=== PATIENT | female | born 1985 | race African-American/Black ===

== ENCOUNTER 2017-08-04 19:49 | Observation (INO) | payer SELFPAY ==
[~2017-08-04] VITALS: Ht 170.2 cm; Wt 77.1 kg
[~2017-08-04 19:49] MED LIST: HYDR-4683 PO; IBUP400T21 PO; MULT-228 PO
[2017-08-04 20:15] VITALS: BP 151/89
[2017-08-04] MEDS ORDERED: SODIUM CHLORIDE 0.9% 1,000 ML IVB ONE (20:26)
[2017-08-04 20:37] LABS: Basophils # (auto) 0 uL; Basophils % (auto) 0.3 % (0.0-2.0); Eosinophils # (auto) 0.2 uL; Eosinophils % (auto) 1.4 % (0.0-7.0); Hematocrit 33.3 % (36.0-46.0); Hemoglobin 11.5 g/dL (12.2-16.2); Lymphocytes # (auto) 1.5 uL; Lymphocytes % (auto) 13.4 % (10.0-50.0); Mean Corpuscular Hemoglobin 29.5 pg (28.0-32.0); Mean Corpuscular Hgb Conc. 34.6 g/dL (32.0-36.0); Mean Corpuscular Volume 85.5 fL (80.0-100.0); Mean Platelet Volume 8.6 fL (6.9-10.8); Monocytes % (auto) 8.9 % (0.0-12.0); Neutrophils # (auto) 8.3 uL; Platelet Count (auto) 256 10^3/uL (140-450); Red Cell Distribution Width 13.4 % (11.8-14.3); White Blood Cell 10.9 10^3/uL (4.4-10.8)
[2017-08-04 20:54] LABS: Albumin 3.8 g/dL (3.4-5.0); Anion Gap 8 (5-15); Blood Urea Nitrogen 9 mg/dL (7-18); Calcium 8.7 mg/dL (8.5-10.1); Carbon Dioxide 24 mmol/L (21-32); Chloride 108 mmol/L (98-107); Glucose 79 mg/dL (74-106); Magnesium 1.9 mg/dL (1.6-2.6); Potassium 3.3 mmol/L (3.5-5.1); Sodium 140 mmol/L (136-145)
[2017-08-04 20:56] LABS: Aspartate Aminotransferase 13 U/L (15-37); BUN/Creatinine Ratio 11.8; GFR African American 115 mL/min; GFR Non-African American 95 mL/min
[2017-08-04 20:57] LABS: Amylase 52 U/L (25-115)
[2017-08-04 21:00] LABS: Alkaline Phosphatase 83 U/L (45-117); Bilirubin, Total 0.6 mg/dL (0.2-1.0); Total Protein 8.5 g/dL (6.4-8.2)
[2017-08-04 21:06] LABS: INR 1.04 (0.9-1.15); Partial Thromboplastin Time 26.1 sec (22.64-33.71); Prothrombin Time 11.3 sec (9.37-12.3)
== END 2017-08-04 21:11 | disposition left against medical advice (07) | DRG 379 ==
LOC: EDBD 19:49 → ER 19:52 → OVERFLOW 20:28 → ER 21:11
PROVIDERS: ADMIT Family Medicine; ATTEND Family Medicine
DX: K92.1 Melena (principal); Z82.49 Family history of ischemic heart disease and other diseases of the circulatory system
CPT/HCPCS: 36415; 80053; 82150; 83690; 83735; 84484; 85025; 85610; 85730; 99285; G0378

== ENCOUNTER 2023-06-20 03:46 | Inpatient (IN) | payer MEDICAID ==
[~2023-06-20] VITALS: Ht 172.7 cm; Wt 84.5 kg
[~2023-06-20 03:46] MED LIST changes: -HYDR-4683 PO; +HYDR-4833 PO; +IBUP-1453 PO; -IBUP400T21 PO
[2023-06-20 04:41] LABS: Basophils # (auto) 0 10 ^3/uL (0-0.2); Eosinophils # (auto) 0.2 10 ^3/uL (0-0.8)
[2023-06-20 04:45] LABS: Basophils % (auto) 0.2 % (0.0-2.0); Eosinophils % (auto) 1.5 % (0.0-7.0); Hematocrit 28.3 % (36.0-46.0); Hemoglobin 9.3 g/dL (12.2-16.2); Lymphocytes # (auto) 2.3 10 ^3/uL (0.4-5.4); Lymphocytes % (auto) 20.8 % (10.0-50.0); Mean Corpuscular Hgb Conc. 32.7 g/dL (32.0-36.0); Mean Corpuscular Volume 76.5 fL (80.0-100.0); Monocytes # (auto) 2.1 10 ^3/uL (0-1.3); Neutrophils # (auto) 6.7 10 ^3/uL (1.6-8.6); Neutrophils % (auto) 59.2 % (37.0-80.0); Red Cell Distribution Width 15.9 % (11.8-14.3); White Blood Cell 11.3 10^3/uL (4.4-10.8)
[2023-06-20 04:49] LABS: Monocytes % (auto) 18.3 % (0.0-12.0)
[2023-06-20 04:53] LABS: Alanine Aminotransferase 27 U/L (7-40); Albumin 3.9 g/dL (3.2-4.8); Alkaline Phosphatase 265 U/L (46-116); Anion Gap 9.7 (5-15); Aspartate Aminotransferase 34 U/L (13-40); BUN/Creatinine Ratio 43.1 (10.0-20.0); Blood Urea Nitrogen 22 mg/dL (9-23); Calcium 10.9 mg/dL (8.7-10.4); Carbon Dioxide 26.3 mmol/L (20-30); Chloride 102 mmol/L (98-107); Glucose 108 mg/dL (74-106); Lipase 57 U/L (12-53); Magnesium 1.4 mg/dL (1.6-2.6); Potassium 3.9 mmol/L (3.5-5.1); Sodium 138 mmol/L (136-145)
[2023-06-20 04:54] LABS: Bilirubin, Total 0.5 mg/dL (0.2-1.0); Total Protein 7.7 g/dL (5.7-8.2)
[2023-06-20 04:56] LABS: INR 1.19 (0.9-1.15); Prothrombin Time 12.4 sec (9.3-11.8)
[2023-06-20] MEDS ORDERED: ONDANSETRON HCL 4 MG/2 ML VIAL IV ONE (07:00)
[2023-06-20] MEDS ORDERED: SODIUM CHLORIDE 0.9% 1,000 ML IV ONE ×2 (07:00)
[2023-06-20] MEDS ORDERED: IOHEXOL 300 MG/ML 100ML BOTTLE IJ ONE (07:46)
[2023-06-20] MEDS ORDERED: MORPHINE SULFATE 4 MG/ML SYR/VIAL ONE (07:57)
[2023-06-20] MEDS ORDERED: MORPHINE SULFATE 4 MG/ML SYR/VIAL IV ONE (08:00)
[2023-06-20] MEDS ORDERED: NITROGLYCERIN 0.4 MG SL TAB SL PRN (10:30)
[2023-06-20] MEDS ORDERED: PANTOPRAZOLE 40 MG/10 ML VIAL INJ IV ONE (10:30)
[2023-06-20] MEDS ORDERED: HYDROcodone-ACET 5/325MG TAB PO PRN (10:30)
[2023-06-20] MEDS ORDERED: MORPHINE SULFATE INJ 2 MG/ml SYRG IV PRN (10:30)
[2023-06-20] MEDS ORDERED: methylPREDNISolone SOD SUCC 40 MG/ML VL IV ONE (10:30)
[2023-06-20] MEDS ORDERED: MESALAMINE 400mg Delayed Release Cap PO ONE (10:30)
[2023-06-20] MEDS ORDERED: PIPERACILLIN-TAZOB 3.375GM 100 ML IV ONE (10:30)
[2023-06-20] MEDS ORDERED: ACETAMINOPHEN 325 MG TAB PO PRN (10:30)
[2023-06-20] MEDS: SODIUM CHLORIDE 0.9% 1,000 ML IV SCH ×2 (11:22→22:41)
[2023-06-20] MEDS: MAGNESIUM SULFATE 1GM/100ML 100 ML IV SCH ×3 (11:22→18:10)
[2023-06-20] MEDS: MORPHINE SULFATE INJ 2 MG/ml SYRG IV PRN ×3 (11:22→21:42)
[2023-06-20 11:52] LABS: Erythrocyte Sedimentation Rate 70 mm/hr (0-20)
[2023-06-20 13:03] LABS: Platelet Estimate Increased
[2023-06-20 14:41] VITALS: PULSE 110; RESP 22; O2SAT 96
[2023-06-20 15:28] LABS: Urine Bacteria NONE SEEN /hpf (None Seen); Urine Blood 3+ /uL (Negative); Urine Clarity HAZY (Clear); Urine Color Yellow (Yellow); Urine Protein, UAD 1+ (Negative); Urine Specific Gravity 1.033 (1.001-1.035); Urine Urobilinogen Normal (Negative); Urine WBC 217 /hpf (0 - 5); Urine WBC Clumps PRESENT /hpf (None Seen); Urine pH 5.5 (5.0-8.0)
[2023-06-20 15:45] VITALS: PULSE 105; RESP 22; O2SAT 96
[2023-06-20 17:23] LABS: Basophils # (auto) 0 10 ^3/uL (0-0.2); Eosinophils # (auto) 0 10 ^3/uL (0-0.8); Lymphocytes # (auto) 0.6 10 ^3/uL (0.4-5.4); Mean Corpuscular Hgb Conc. 32.8 g/dL (32.0-36.0); Monocytes # (auto) 0.2 10 ^3/uL (0-1.3); Red Cell Distribution Width 16.1 % (11.8-14.3); White Blood Cell 10.6 10^3/uL (4.4-10.8)
[2023-06-20 17:24] LABS: Basophils % (auto) 0.2 % (0.0-2.0); Hematocrit 25.8 % (36.0-46.0); Hemoglobin 8.5 g/dL (12.2-16.2); Lymphocytes % (auto) 5.8 % (10.0-50.0); Mean Corpuscular Hemoglobin 25.3 pg (28.0-32.0); Mean Corpuscular Volume 77.3 fL (80.0-100.0); Monocytes % (auto) 2.3 % (0.0-12.0); Neutrophils # (auto) 9.7 10 ^3/uL (1.6-8.6); Neutrophils % (auto) 91.7 % (37.0-80.0); Red Blood Cells 3.33 10^6/uL (4.0-5.20)
[2023-06-20 17:51] LABS: Alanine Aminotransferase 30 U/L (7-40); Albumin 3.8 g/dL (3.2-4.8); Alkaline Phosphatase 271 U/L (46-116); Anion Gap 8.3 (5-15); Aspartate Aminotransferase 52 U/L (13-40); BUN/Creatinine Ratio 30.9 (10.0-20.0); Blood Urea Nitrogen 17 mg/dL (9-23); Calcium 10.6 mg/dL (8.5-10.1); Carbon Dioxide 23.7 mmol/L (20-30); Chloride 104 mmol/L (98-107); Glucose 151 mg/dL (74-106); Potassium 4.3 mmol/L (3.5-5.1); Sodium 136 mmol/L (136-145)
[2023-06-20 17:52] LABS: Bilirubin, Total 0.4 mg/dL (0.2-1.0); Total Protein 7.3 g/dL (5.7-8.2)
[2023-06-20] MEDS ORDERED: MAGNESIUM SULFATE 1GM/100ML 100 ML IV ONE (18:04)
[2023-06-20] MEDS: PIPERACILLIN-TAZOB 3.375GM 100 ML IV SCH ×2 (18:10→23:54)
[2023-06-20 20:41] VITALS: PULSE 91; RESP 27; O2SAT 95
[2023-06-20 22:00] VITALS: BP 150/84; PULSE 89; RESP 16; TEMP 98.5; O2SAT 94
[2023-06-20 22:30] VITALS: PULSE 92
[2023-06-20 22:35] VITALS: PULSE 91; RESP 22; O2SAT 95
[2023-06-20] MEDS ORDERED: MORP1TAB12 PO (22:38)
[2023-06-20] MEDS: methylPREDNISolone SOD SUCC 40 MG/ML VL IV SCH (22:41)
[2023-06-20] MEDS: MESALAMINE 400mg Delayed Release Cap PO SCH (22:41)
[2023-06-21] MEDS: MORPHINE SULFATE INJ 2 MG/ml SYRG IV PRN ×5 (02:43→22:26)
[2023-06-21] MEDS: SODIUM CHLORIDE 0.9% 1,000 ML IV SCH ×3 (03:10→19:50)
[2023-06-21 04:59] VITALS: BP 134/91; PULSE 86; RESP 17; TEMP 98.3; O2SAT 99
[2023-06-21] MEDS ORDERED: hydrALAZINE HCL 20 MG/ML VL IV PRN (05:00)
[2023-06-21] MEDS: PIPERACILLIN-TAZOB 3.375GM 100 ML IV SCH ×3 (06:15→17:59)
[2023-06-21] MEDS: MESALAMINE 400mg Delayed Release Cap PO SCH ×3 (06:15→22:16)
[2023-06-21 08:00] VITALS: BP 151/95; PULSE 81; PULSE 89; RESP 99; TEMP 98.7; O2SAT 96; O2SAT 99
[2023-06-21] MEDS: PANTOPRAZOLE 40 MG/10 ML VIAL INJ IV SCH (08:49)
[2023-06-21] MEDS: methylPREDNISolone SOD SUCC 40 MG/ML VL IV SCH ×2 (08:49→22:21)
[2023-06-21] MEDS: MULTIPLE VITAMIN TAB PO SCH (09:00)
[2023-06-21] MEDS: ONDANSETRON HCL 4 MG/2 ML VIAL IV PRN ×3 (11:10→22:23)
[2023-06-21 12:00] VITALS: BP 160/92; PULSE 82; TEMP 98.6; O2SAT 98
[2023-06-21 14:00] VITALS: BP 156/95; PULSE 92; RESP 19; TEMP 98.3; O2SAT 98
[2023-06-21 16:13] LABS: Basophils # (auto) 0 10 ^3/uL (0-0.2); Basophils % (auto) 0.1 % (0.0-2.0); Eosinophils # (auto) 0 10 ^3/uL (0-0.8); Hematocrit 25.1 % (36.0-46.0); Lymphocytes # (auto) 0.8 10 ^3/uL (0.4-5.4); Mean Corpuscular Hemoglobin 24.8 pg (28.0-32.0); Mean Corpuscular Hgb Conc. 31.8 g/dL (32.0-36.0); Mean Corpuscular Volume 78.1 fL (80.0-100.0); Monocytes % (auto) 7.9 % (0.0-12.0); Red Blood Cells 3.22 10^6/uL (4.0-5.20); Red Cell Distribution Width 15.7 % (11.8-14.3); White Blood Cell 12.8 10^3/uL (4.4-10.8)
[2023-06-21 16:30] LABS: Alanine Aminotransferase 33 U/L (7-40); Alkaline Phosphatase 235 U/L (46-116); Anion Gap 7.8 (5-15); Aspartate Aminotransferase 40 U/L (13-40); BUN/Creatinine Ratio 26.5 (10.0-20.0); Blood Urea Nitrogen 13 mg/dL (9-23); Calcium 9.7 mg/dL (8.5-10.1); Carbon Dioxide 24.2 mmol/L (20-30); Chloride 105 mmol/L (98-107); Glucose 157 mg/dL (74-106); Magnesium 1.5 mg/dL (1.6-2.6); Sodium 137 mmol/L (136-145)
[2023-06-21 16:31] LABS: Albumin 3.8 g/dL (3.2-4.8); Bilirubin, Total 0.4 mg/dL (0.2-1.0); Total Protein 7.3 g/dL (5.7-8.2)
[2023-06-21 20:00] VITALS: PULSE 89; RESP 99; TEMP 36.8; O2SAT 99
[2023-06-21 22:00] VITALS: BP 154/90; PULSE 94; RESP 19; TEMP 98.1; O2SAT 97
[2023-06-22] VITALS (8 sets, daily range): BP systolic 135–168; BP diastolic 79–96; PULSE 80–109; RESP 18–99; TEMP 97.6–98.3; O2SAT 92–99
[2023-06-22] MEDS: SODIUM CHLORIDE 0.9% 1,000 ML IV SCH ×3 (04:10→20:50)
[2023-06-22] MEDS: PIPERACILLIN-TAZOB 3.375GM 100 ML IV SCH ×4 (04:10→18:00)
[2023-06-22] MEDS: MORPHINE SULFATE INJ 2 MG/ml SYRG IV PRN ×5 (04:43→22:52)
[2023-06-22] MEDS: MESALAMINE 400mg Delayed Release Cap PO SCH ×3 (06:18→21:13)
[2023-06-22] MEDS: PANTOPRAZOLE 40 MG/10 ML VIAL INJ IV SCH (10:12)
[2023-06-22] MEDS: ONDANSETRON HCL 4 MG/2 ML VIAL IV PRN ×4 (10:12→22:47)
[2023-06-22] MEDS: methylPREDNISolone SOD SUCC 40 MG/ML VL IV SCH ×2 (10:14→21:13)
[2023-06-22] MEDS: MULTIPLE VITAMIN TAB PO SCH (10:14)
[2023-06-22] MEDS: methIMAzole 5 MG TAB PO SCH ×2 (14:11→21:13)
[2023-06-23] VITALS (7 sets, daily range): BP systolic 137–149; BP diastolic 76–94; PULSE 63–74; RESP 16–20; TEMP 97.6–98.6; O2SAT 94–100
[2023-06-23] MEDS: PIPERACILLIN-TAZOB 3.375GM 100 ML IV SCH ×2 (00:06→05:32)
[2023-06-23] MEDS: ONDANSETRON HCL 4 MG/2 ML VIAL IV PRN ×6 (02:36→23:03)
[2023-06-23] MEDS: MORPHINE SULFATE INJ 2 MG/ml SYRG IV PRN ×6 (02:39→23:04)
[2023-06-23] MEDS: SODIUM CHLORIDE 0.9% 1,000 ML IV SCH (05:19)
[2023-06-23] MEDS: MESALAMINE 400mg Delayed Release Cap PO SCH ×3 (05:32→21:22)
[2023-06-23] MEDS: methIMAzole 5 MG TAB PO SCH ×3 (05:32→21:23)
[2023-06-23] MEDS: MULTIPLE VITAMIN TAB PO SCH (09:49)
[2023-06-23] MEDS: methylPREDNISolone SOD SUCC 40 MG/ML VL IV SCH ×2 (09:50→21:21)
[2023-06-23] MEDS: PANTOPRAZOLE 40 MG/10 ML VIAL INJ IV SCH (09:50)
[2023-06-23] MEDS ORDERED: CIPROFLOXACIN HYDROCHLORIDE 250 MG TAB PO ONE (12:00)
[2023-06-23] MEDS ORDERED: LOPERAMIDE HCL 2 MG CAP/TAB PO PRN (12:00)
[2023-06-23] MEDS: CIPROFLOXACIN HYDROCHLORIDE 250 MG TAB PO SCH (21:23)
[2023-06-24] MEDS: ONDANSETRON HCL 4 MG/2 ML VIAL IV PRN ×4 (03:22→15:15)
[2023-06-24] MEDS: MORPHINE SULFATE INJ 2 MG/ml SYRG IV PRN ×4 (03:26→15:24)
[2023-06-24 05:00] VITALS: BP 122/68; PULSE 70; RESP 17; TEMP 97.8; O2SAT 99
[2023-06-24 06:14] LABS: Basophils # (auto) 0 10 ^3/uL (0-0.2); Eosinophils # (auto) 0 10 ^3/uL (0-0.8); Hemoglobin 9.6 g/dL (12.2-16.2); Lymphocytes # (auto) 1.2 10 ^3/uL (0.4-5.4); Monocytes # (auto) 0.9 10 ^3/uL (0-1.3); Neutrophils # (auto) 12.2 10 ^3/uL (1.6-8.6); Nucleated Red Blood Cells % 0.1 %; White Blood Cell 14.3 10^3/uL (4.4-10.8)
[2023-06-24 06:15] LABS: Basophils % (auto) 0.2 % (0.0-2.0); Hematocrit 28.9 % (36.0-46.0); Lymphocytes % (auto) 8.4 % (10.0-50.0); Mean Corpuscular Hemoglobin 25.8 pg (28.0-32.0); Mean Corpuscular Hgb Conc. 33.1 g/dL (32.0-36.0); Mean Corpuscular Volume 77.9 fL (80.0-100.0); Neutrophils % (auto) 85.4 % (37.0-80.0); Red Blood Cells 3.71 10^6/uL (4.0-5.20); Red Cell Distribution Width 15.9 % (11.8-14.3)
[2023-06-24 06:25] LABS: Alanine Aminotransferase 68 U/L (7-40); Albumin 3.9 g/dL (3.2-4.8); Alkaline Phosphatase 196 U/L (46-116); Aspartate Aminotransferase 38 U/L (13-40); BUN/Creatinine Ratio 24.6 (10.0-20.0); Bilirubin, Total 0.4 mg/dL (0.2-1.0); Blood Urea Nitrogen 14 mg/dL (9-23); Calcium 9.3 mg/dL (8.5-10.1); Chloride 105 mmol/L (98-107); Glucose 178 mg/dL (74-106); Magnesium 1.5 mg/dL (1.6-2.6); Sodium 136 mmol/L (136-145); Total Protein 7.2 g/dL (5.7-8.2)
[2023-06-24 06:55] LABS: Anion Gap 8.6 (5-15); Carbon Dioxide 22.4 mmol/L (20-30)
[2023-06-24] MEDS: methIMAzole 5 MG TAB PO SCH ×2 (06:57→14:48)
[2023-06-24] MEDS: MESALAMINE 400mg Delayed Release Cap PO SCH ×2 (07:03→14:47)
[2023-06-24 08:00] VITALS: PULSE 67
[2023-06-24 08:30] VITALS: BP 153/71; PULSE 65; RESP 17; TEMP 97.7; O2SAT 95
[2023-06-24] MEDS ORDERED: METH-552 PO (09:42)
[2023-06-24] MEDS ORDERED: ZOFR4T PO (09:42)
[2023-06-24] MEDS ORDERED: METH4PAK PO (09:42)
[2023-06-24] MEDS ORDERED: LOP2C PO (09:42)
[2023-06-24] MEDS ORDERED: METR-344 PO (09:44)
[2023-06-24] MEDS ORDERED: CIPR-273 PO (09:44)
[2023-06-24] MEDS: MAGNESIUM SULFATE 1GM/100ML 100 ML IV SCH ×2 (10:44→12:50)
[2023-06-24] MEDS: MULTIPLE VITAMIN TAB PO SCH (10:44)
[2023-06-24] MEDS: CIPROFLOXACIN HYDROCHLORIDE 250 MG TAB PO SCH (10:44)
[2023-06-24] MEDS: methylPREDNISolone SOD SUCC 40 MG/ML VL IV SCH (10:44)
[2023-06-24] MEDS: PANTOPRAZOLE 40 MG/10 ML VIAL INJ IV SCH (10:44)
[2023-06-24 12:30] VITALS: BP 145/88; PULSE 74; RESP 19; TEMP 97.7; O2SAT 98
[2023-06-24 15:54] VITALS: BP 123/67; PULSE 93; RESP 20
== END 2023-06-24 18:50 | disposition home or self-care (01) | DRG 463 ==
LOC: EDBD 03:46 → ER 03:46 → TELE 10:29 → TELE-WESTW 22:15
PROVIDERS: ADMIT Nurse Practitioner Family; ATTEND Internal Medicine Geriatric Medicine
DX: N39.0 Urinary tract infection, site not specified (principal); D25.9 Leiomyoma of uterus, unspecified; K50.90 Crohn's disease, unspecified, without complications; D64.9 Anemia, unspecified; R00.0 Tachycardia, unspecified; E83.42 Hypomagnesemia; R74.8 Abnormal levels of other serum enzymes; E05.90 Thyrotoxicosis, unspecified without thyrotoxic crisis or storm; Z80.0 Family history of malignant neoplasm of digestive organs; Z82.49 Family history of ischemic heart disease and other diseases of the circulatory system; Z83.3 Family history of diabetes mellitus
CPT/HCPCS: 36415; 74177; 80053; 81001; 82270; 83690; 83735; 84439; 84443; 84702; 85025; 85610; 85652; 85730; 86141; 87040; 87045; 87086; 87177; 87427; 87493; C9113; G0378; J2405; J2543

== ENCOUNTER 2025-09-16 06:06 | Inpatient (IN) | payer MEDICAID ==
[~2025-09-16] VITALS: Ht 182.9 cm; Wt 89.0 kg
[~2025-09-16 06:06] MED LIST changes: +CIPR-273 PO; -HYDR-4833 PO; -IBUP-1453 PO; +LOPE2CAP16 PO; +METH-552 PO; +METH4PAK PO; +METR-344 PO; +MORP1TAB12 PO; +PRED20TA2 PO; +ZOFR4T PO
--- NOTE | 2025-09-16 07:15 | ED.PDOC ---
GI ASSESSMENT HPI Comments A 40 YEAR OLD FEMALE PRESENTS TO THE ED WITH COMPLAINT OF FATIGUE AND RECTAL PAIN. PATIENT STATES SHE HAS BEEN EXPERIENCING GENERALIZED WEAKNESS/FATIGUE, NAUSEA, VOMITING, DIARRHEA, AND RECTAL PAIN OFF AND ON FOR THE PAST 3 WEEKS. PATIENT NOTES HE HAS A HISTORY OF CROHN'S DISEASE, AND HAS HAD THIS ISSUE MULTIPLE TIMES IN THE PAST. PATIENT DENIES FEVER, SHORTNESS OF BREATH, CHEST PAIN, ABDOMINAL PAIN, HEADACHE, OR OTHER COMPLAINTS. NO OTHER SYMPTOMS OR MODIFYING FACTORS AT THIS TIME. PATIENT IS ALERT, ORIENTED X 4, AND HAS STEADY GAIT. Chief Complaint: Rectal Pain Time Seen by MD: 06:27 Primary Care Provider: NONE Reviewed Notes: Nurses Notes, Medications, Allergies Allergies: Coded Allergies: NO KNOWN ALLERGIES (Unverified , 05/04/15) Home Meds Active Scripts Prednisone (Prednisone) 20 Mg Tab, 60 MG PO DAILY for 5 Days, #15 MG Prov:YUMIKO YOU DO 01/09/24 Metronidazole (Flagyl) 500 Mg Tab, 1 TAB PO TID, #21 TAB Prov:TRACI BENDER MD 06/24/23 Ciprofloxacin Hcl (Cipro) 250 Mg Tab, 250 MG PO BID for 7 Days, #14 TAB Prov:TRACI BENDER MD 06/24/23 Methylprednisolone (Medrol Dosepak) 4 Mg Kostas, 4 MG PO UD, #21 TAB UAD Prov:TRACI BENDER MD 06/24/23 Ondansetron Odt 4MG Tab (ZOFRAN PO) 4 Mg Tb, 4 MG PO Q6HP PRN, #30 TAB ODT TAB-DISSOLVE IN MOUTH, THEN SWALLOW Prov:TRACI BENDER MD 06/24/23 Methimazole (Methimazole) 10 Mg Tab, 10 MG PO TID for 30 Days, #90 TAB 5 Refills Prov:TRACI BENDER MD 06/24/23 Loperamide Hcl (Imodium) 2 Mg Cp, 2 MG PO Q6HP PRN, #30 CAP Prov:TRACI BENDER MD 06/24/23 Reported Medications Morphine Sulfate (Morphine Sulfate Cr) 15 Mg Tab, 1 TAB PO DAILY 06/20/23 Multiple Vitamin (Multi-Day Vitamins) Vitamins Tab, 1 TAB PO DAILY, #30 TAB 05/05/15 Information Source: Patient Mode of Arrival: Ambulatory Timing: Weeks Duration: Since onset, Days Prehospital treatment: None Quality: Aching, Colicky Vomitus: Food Particles Stool: Loose, Watery Severity: Moderate Recent: None Recent Hx of: None Pain Location: Other (RECTUM) Modifying Factors: Nothing Associated sign and symptoms: Nausea, Vomiting, Diarrhea Past Medical History PAST MEDICAL HISTORY: Anemia, Thyroid Past Medical History (Other): CROHN'S DISEASE Surgical History: Denies all surgeries COLLISION REPAIR TECHNICIAN History: No Pertinent COLLISION REPAIR TECHNICIAN History Family History Family History: Reviewed,noncontributory to illness, No family hx of HTN Social History Smoker: Non-Smoker Alcohol: Denies ETOH Use Drugs: Denies Drug Use Lives In: Home Constitutional: reports: fatigue; denies: chills, diaphoresis, fever, malaise, sweats, weakness, others EENTM: denies: blurred vision, double vision, ear bleeding, ear discharge, ear drainage, ear pain, ear ringing, eye pain, eye redness, hearing loss, mouth pain, mouth swelling, nasal discharge, nose bleeding, nose congestion, nose pain, photophobia, tearing, throat pain, throat swelling, voice changes, others Respiratory: denies: cough, hemoptysis, orthopnea, SOB at rest, shortness of breath, SOB with excertion, stridor, wheezing, others Cardiovascular: denies: chest pain, dizzy spells, diaphoresis, Dyspnea on exertion, edema, irregular heart beat, left arm pain, lightheadedness, palpitations, PND, syncope, others Gastrointestinal: reports: diarrhea, nausea, rectal pain, vomiting; denies: abdomen distended, abdominal pain, blood streaked bowels, constipated, dysphagia, difficulty swallowing, hematemesis, melena, poor appetite, poor fluid intake, rectal bleeding, others Genitourinary: denies: abnormal vagina bleeding, burning, dyspareunia, dysuria, flank pain, frequency, hematuria, incontinence, pain, , vagina discharge, urgency, others Neurological: denies: dizziness, fainting, headache, left sided numbness, left sided weakness, numbness, paresthesia, pre-existing deficit, right sided numbness, right sided weakness, seizure, speech problems, tingling, tremors, weakness, others Musculoskeletal: denies: back pain, gout, joint pain, joint swelling, muscle pain, muscle stiffness, neck pain, others Integumetry: reports: lesions, lumps, wounds; denies: bruises, change in color, change in hair/nails, dryness, laceration, rash, others Allergic/Immunocompromised: denies: Difficulty Healing, Frequent Infections, Hives, Itching, others Hematologic/Lymphatic: denies: anemia, blood clots, easy bleeding, easy bruising, swollen glands, others Endocrine: denies: excessive hunger, excessive sweating, excessive thirst, excessive urination, flushing, intolerance to cold, intolerance to heat, unexplained weight gain, unexplained weight loss, others Psychiatric: denies: anxiety, bipolar disorder, depression, hopeless, panic disorder, schizophrenia, sleepless, suicidal, others All Other Systems: Reviewed and Negative Physical Exam General Appearance: No Apparent Distress, Normal HEENT: Normal ENT Inspection, PERRL/EOMI, Pharynx Normal, TMs Normal Neck: Full Range of Motion, Non-Tender, Normal, Normal Inspection Respiratory: Chest Non-Tender, Lungs Clear, No Accessory Muscle Use, No Respiratory Distress, Normal Breath Sounds Cardiovascular: No Edema, No JVD, No Murmur, No Gallop, Normal Peripheral Pulses, Regular Rate/Rhythm Breast Exam: Deferred Gastrointestinal: No Organomegaly, Non Tender, No Pulsatile Mass, Normal Bowel Sounds, Soft Genitalia: Deferred Pelvic: Deferred Rectal: Heme negative stool, Normal rectal tone, Tenderness (TENDERNESS AND RE DNESS AROUND RECTAL REGION WITH OLD FISTULA NOTED. 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 ) Peripheral Pulses: 2+ carotid (R), 2+ carotid (L) Lymphatic: No Adenopathy Was a procedure done? Was a procedure done?: No GI differential Dx Differential Diagnosis: Diverticular disease, Gastritis/PUD, Gastroenteritis, UTI, Dehydration, Electrolyte Imbalance, Food Poisoning, Viral Other Differential Diagnosis PERIRECTAL CELLULITIS, ABSCESS X-Ray, Labs, Meds, VS Vital Signs Date Time Temp Pulse Resp B/P (MAP) Pulse Ox O2 Delivery O2 Flow Rate FiO2 09/16/25 08:06 98.8 105 18 121/60 (80) 98 98.8 09/16/25 08:06 105 18 98 Room Air 09/16/25 06:08 98.8 105 18 121/60 98 98.8 Lab Test 09/16/25 07:30 09/16/25 06:42 Range/Units White Blood Count 8.0 4.4-10.8 10^3/uL Red Blood Count 3.36 L 4.0-5.20 10^6/uL Hemoglobin 8.8 L 12.2-16.2 g/dL Hematocrit 25.8 L 36.0-46.0 % Mean Corpuscular Volume 76.6 L 80.0-100.0 fL Mean Corpuscular Hemoglobin 26.2 L 28.0-32.0 pg Mean Corpuscular Hemoglobin Concent 34.2 32.0-36.0 g/dL Red Cell Distribution Width 15.1 H 11.8-14.3 % Platelet Count 261 140-450 10^3/uL Mean Platelet Volume 8.5 6.9-10.8 fL Neutrophils (%) (Auto) 52.4 37.0-80.0 % Lymphocytes (%) (Auto) 30.3 10.0-50.0 % Monocytes (%) (Auto) 16.5 H 0.0-12.0 % Eosinophils (%) (Auto) 0.4 0.0-7.0 % Basophils (%) (Auto) 0.4 0.0-2.0 % Neutrophils # (Auto) 4.2 1.6-8.6 10 ^3/uL Lymphocytes # (Auto) 2.4 0.4-5.4 10 ^3/uL Monocytes # (Auto) 1.3 0-1.3 10 ^3/uL Eosinophils # (Auto) 0 0-0.8 10 ^3/uL Basophils # (Auto) 0 0-0.2 10 ^3/uL Nucleated Red Blood Cells 0.1 % Sodium Level 139 136-145 mmol/L Potassium Level 3.5 3.5-5.1 mmol/L Chloride Level 107 98-107 mmol/L Carbon Dioxide Level 20 20-31 mmol/L Anion Gap 12 5-15 Blood Urea Nitrogen 19 9-23 mg/dL Creatinine 0.63 0.550-1.02 mg/dL Glomerular Filtration Rate Calc 116 >90 mL/min BUN/Creatinine Ratio 30.2 H 10.0-20.0 Serum Glucose 105 74-106 mg/dL Lactic Acid Level 1.3 0.4-2.0 mmol/L Calcium Level 9.0 8.7-10.4 mg/dL Iron Level Pending Total Iron Binding Capacity Pending Percent Iron Saturation Pending Ferritin Pending Total Bilirubin 0.6 0.2-1.0 mg/dL Aspartate Amino Transferase (AST) 55 H 13-40 U/L Alanine Aminotransferase (ALT) 35 7-40 U/L Alkaline Phosphatase 202 H 46-116 U/L Total Protein 7.3 5.7-8.2 g/dL Albumin 3.7 3.2-4.8 g/dL Thyroid Stimulating Hormone (TSH) < 0.01 L 0.55-4.78 uIU/mL Free Thyroxine (T4) Calculated 5.29 H 0.89-1.76 ng/dL Free Triiodothyronine (T3) pg/mL 15.81 H 2.3-4.2 pg/mL Urine Color Yellow Yellow Urine Clarity Clear Clear Urine pH 6.0 5.0-9.0 Urine Specific [place] > 1.050 H 1.001-1.035 Urine Protein 1+ H Negative Urine Ketones 1+ H Negative Urine Blood 2+ H Negative /uL Urine Nitrite Negative Negative Urine Bilirubin Negative Negative Urine Urobilinogen Normal Negative mg/dL Urine Leukocyte Esterase 3+ Negative /uL Urine RBC 50 0 - 4 /hpf Urine Microscopic WBC 13 H 0-5 /HPF Urine Squamous Epithelial Cells Mod <5 /hpf Urine Bacteria Few H None Seen /hpf Urine Mucus Few None Seen Urine Glucose Normal Normal mg/dL Current Medications Medications (Trade) Dose Ordered Sig/Marybeth Route Start Time Stop Time Status Last Admin Sodium Chloride 1,000 ml @ 1,000 mls/hr Q1H ONCE IV 09/16/25 09:15 09/16/25 10:14 DC 09/16/25 09:18 X-Ray, Labs, Meds, VS Comment EXTERNAL MEDICAL RECORDS REVIEWED: [NONE] INDEPENDENT HISTORIANS: [NONE] SOCIAL DETERMINANTS OF HEALTH: [NONE] LABS ORDERED: CBC, CMP, UA, LACTIC ACID W/REFLEX, BLOOD CULTURE, WOUND CULTURE REVIEWED AND INTERPRETED RESULTS: HGB 8.8, AST 55, ALP 202, TSH 0.01, BLOOD 2+, LEUKOCYTES 3+ TREATMENTS ORDERED: NS 1 L IV, ZOFRAN 4 MG IV, MORPHINE 4 MG IV, ROCEPHIN 1 G IV, CLINDAMYCIN 600 MG IV PROCEDURES PERFORMED: NONE CRITICAL CARE TIME: NONE I HAVE DISCUSSED THE PATIENT WITH THE ATTENDING PHYSICIAN DR. PERALES AND HE AGREES WITH THE PATIENT'S PLAN OF CARE. UPON MY PHYSICAL EXAMINATION, THE PATIENT HAD SEVERAL LUMPS AND OPEN SORES ON HER PERIRECTAL REGION WITH PUS DRAINAGE CONSISTENT WITH PERIRECTAL CELLULITIS. LABS WERE ORDERED FOR THE PATIENT WHICH REVEALED A HEMOGLOBIN OF 8.8, TSH OF LESS THAN 0.0, AND LEUKOCYTES 3+ CONSISTENT WITH ANEMIA, HYPERTHYROIDISM, AND ACUTE UTI. DUE TO THE PATIENT'S CLINICAL EXAM FINDINGS, HISTORY, AND HER LAB RESULTS, I HAVE DETERMINED THE PATIENT NEEDS TO BE ADMITTED FOR FURTHER TREATMENT EVALUATION. THE ON-CALL HOSPITALIST WILL BE CONTACTED FOR ADMISSION OF THIS PATIENT. Time of 1ST Reevaluation: 09:30 Reevaluation 1ST: Unchanged Patient Education/Counseling: Diagnosis, Treatment Family Education/Counseling: Diagnosis, Treatment SEPSIS Sepsis Screen Date sepsis recognized/suspect: Sep 16, 2025 Time Sepsis recognized/suspect: 612 Recent Procedure: No On Antibiotic Therapy: No Respiratory Rate >20: No Heart Rate >90: Yes Temp<36 C (96.8 F) or >38.3 C: No SBP <90 or MAP <65 mmHG: No New Acute Mental Status Change: No Is the patient on CPAP, BIPAP,: No Physician Orders Wound Culture W/ Gs (09/16/25 06:49) Blood Culture (09/16/25 06:49) Heplock Iv (09/16/25 ) Vital Signs Date Time Temp Pulse Resp B/P (MAP) Pulse Ox O2 Delivery O2 Flow Rate FiO2 09/16/25 08:06 98.8 105 18 121/60 (80) 98 98.8 09/16/25 08:06 105 18 98 Room Air 09/16/25 06:08 98.8 105 18 121/60 98 98.8 Laboratory Tests Test 09/16/25 07:30 Lactic Acid Level 1.3 mmol/L (0.4-2.0) White Blood Count 8.0 10^3/uL (4.4-10.8) Medications Medications Dose Ordered Sig/Marybeth Route Start Time Stop Time Status Last Admin Dose Admin Sodium Chloride 1,000 ml @ 1,000 mls/hr Q1H ONCE IV 09/16/25 09:15 09/16/25 10:14 DC 09/16/25 09:18 Departure 1 Departure Time of Disposition: 09:30 Impression: Primary Impression: Perirectal cellulitis Additional Impressions: Acute UTI (urinary tract infection) Anemia Qualified Codes: D50.9 - Iron deficiency anemia, unspecified History of Crohn's disease Hyperthyroidism Disposition: ADMITTED INPATIENT Condition: Serious Critical Care Note Critical Care Time?: No Stability Stability form required: Yes Unstable for transfer: Requires medication, ED Physician Assesment, Possible rapid decline I personally scribed for MICHELLE BAINS ([email or web address]) on 09/16/25 at 07:15. Electronically submitted by Eliseo Kowalski ([email or web address]). I personally scribed for MICHELLE BAINS ([email or web address]) on 09/16/25 at 09:29. Electronically submitted by Eliseo Kowalski ([email or web address]). MICHELLE BAINS Sep 16, 2025 07:15
[2025-09-16 08:02] LABS: Urine Protein, UAD 1+ (Negative)
[2025-09-16 08:04] LABS: Hemoglobin 8.8 g/dL (12.2-16.2); Nucleated Red Blood Cells % 0.1 %
[2025-09-16 08:06] LABS: Hematocrit 25.8 % (36.0-46.0); Mean Corpuscular Hemoglobin 26.2 pg (28.0-32.0); Mean Corpuscular Volume 76.6 fL (80.0-100.0)
[2025-09-16 08:13] LABS: Alanine Aminotransferase 35 U/L (7-40); Albumin 3.7 g/dL (3.2-4.8); Anion Gap 12 (5-15); BUN/Creatinine Ratio 30.2 (10.0-20.0); Blood Urea Nitrogen 19 mg/dL (9-23); Calcium 9.0 mg/dL (8.7-10.4); Glucose 105 mg/dL (74-106); Sodium 139 mmol/L (136-145); Total Protein 7.3 g/dL (5.7-8.2)
[2025-09-16 08:14] LABS: Bilirubin, Total 0.6 mg/dL (0.2-1.0)
[2025-09-16 08:16] LABS: Alkaline Phosphatase 202 U/L (46-116); Carbon Dioxide 20 mmol/L (20-31); Chloride 107 mmol/L (98-107); Potassium 3.5 mmol/L (3.5-5.1)
[2025-09-16] MEDS: SODIUM CHLORIDE 0.9% 1,000 ML IV ONE (09:18)
--- NOTE | 2025-09-16 10:14 | DVHHP2 ---
CONSUELO BergerANGELIQUE RESIDENT 09/16/25 1014: History of Present Illness History of Present Illness This is a 40-year-old female with a history of Crohns disease on Skyrizi every two months,prior perianal drainage procedures and hyperthyroidism who presents with worsening rectal pain, purulent discharge, generalized weakness, fatigue, nausea, and diarrhea. She reports a two-year history of recurrent perianal abscesses and possible fistulous disease but is unsure of prior imaging confirmation. She denies hematochezia or melena. She also reports an unspecified history of thyroid disease without active treatment. UA is positive for protein, ketones, blood, and leukocyte esterase. She is being admitted for further evaluation, MRI pelvis with contrast, and surgical consultation. PMHx Crohns disease. Thyroid disorder (unspecified). PSH Perianal abscess drainage procedures. Social History Denies tobacco, alcohol, or recreational drug use. ROS Negative except as described in HPI. Review of Systems Allergies: Coded Allergies: NO KNOWN ALLERGIES (Unverified , 05/04/15) Medications Current Medications Medications Dose Ordered Sig/Marybeth Route Start Time Stop Time Status Last Admin Dose Admin Sodium Chloride 1,000 ml @ 60 mls/hr [id number] IV 09/16/25 09:45 UNV Acetaminophen 650 mg Q6HP PRN PO 09/16/25 09:45 UNV Acetaminophen/ Hydrocodone Bitart 1 tab Q4HP PRN PO 09/16/25 09:45 UNV Ceftriaxone Sodium 50 ml @ 100 mls/hr DAILY@09 IV 09/17/25 09:00 UNV Metronidazole 100 ml @ 100 mls/hr Q8HR IV 09/16/25 14:00 UNV Exam Vital Signs Vital Signs Date Time Temp Pulse Resp B/P (MAP) Pulse Ox O2 Delivery O2 Flow Rate FiO2 09/16/25 08:06 98.8 105 18 121/60 (80) 98 98.8 09/16/25 08:06 Room Air Exam General: Alert, no acute distress. Cardiac: Regular rate and rhythm. Respiratory: Clear to auscultation. Abdomen: Soft, non-distended, non-tender. Perianal: Two external openings in bilateral perianal region with purulent drainage, no fluctuance. Neuro: No focal deficits. Labs/Xrays Labs Test 09/16/25 07:30 09/16/25 06:42 Range/Units White Blood Count 8.0 4.4-10.8 10^3/uL Red Blood Count 3.36 L 4.0-5.20 10^6/uL Hemoglobin 8.8 L 12.2-16.2 g/dL Hematocrit 25.8 L 36.0-46.0 % Mean Corpuscular Volume 76.6 L 80.0-100.0 fL Mean Corpuscular Hemoglobin 26.2 L 28.0-32.0 pg Mean Corpuscular Hemoglobin Concent 34.2 32.0-36.0 g/dL Red Cell Distribution Width 15.1 H 11.8-14.3 % Platelet Count 261 140-450 10^3/uL Mean Platelet Volume 8.5 6.9-10.8 fL Neutrophils (%) (Auto) 52.4 37.0-80.0 % Lymphocytes (%) (Auto) 30.3 10.0-50.0 % Monocytes (%) (Auto) 16.5 H 0.0-12.0 % Eosinophils (%) (Auto) 0.4 0.0-7.0 % Basophils (%) (Auto) 0.4 0.0-2.0 % Neutrophils # (Auto) 4.2 1.6-8.6 10 ^3/uL Lymphocytes # (Auto) 2.4 0.4-5.4 10 ^3/uL Monocytes # (Auto) 1.3 0-1.3 10 ^3/uL Eosinophils # (Auto) 0 0-0.8 10 ^3/uL Basophils # (Auto) 0 0-0.2 10 ^3/uL Nucleated Red Blood Cells 0.1 % Sodium Level 139 136-145 mmol/L Potassium Level 3.5 3.5-5.1 mmol/L Chloride Level 107 98-107 mmol/L Carbon Dioxide Level 20 20-31 mmol/L Anion Gap 12 5-15 Blood Urea Nitrogen 19 9-23 mg/dL Creatinine 0.63 0.550-1.02 mg/dL Glomerular Filtration Rate Calc 116 >90 mL/min BUN/Creatinine Ratio 30.2 H 10.0-20.0 Serum Glucose 105 74-106 mg/dL Lactic Acid Level 1.3 0.4-2.0 mmol/L Calcium Level 9.0 8.7-10.4 mg/dL Total Bilirubin 0.6 0.2-1.0 mg/dL Aspartate Amino Transferase (AST) 55 H 13-40 U/L Alanine Aminotransferase (ALT) 35 7-40 U/L Alkaline Phosphatase 202 H 46-116 U/L Total Protein 7.3 5.7-8.2 g/dL Albumin 3.7 3.2-4.8 g/dL Thyroid Stimulating Hormone (TSH) < 0.01 L 0.55-4.78 uIU/mL Urine Color Yellow Yellow Urine Clarity Clear Clear Urine pH 6.0 5.0-9.0 Urine Specific [place] > 1.050 H 1.001-1.035 Urine Protein 1+ H Negative Urine Ketones 1+ H Negative Urine Blood 2+ H Negative /uL Urine Nitrite Negative Negative Urine Bilirubin Negative Negative Urine Urobilinogen Normal Negative mg/dL Urine Leukocyte Esterase 3+ Negative /uL Urine RBC 50 0 - 4 /hpf Urine Microscopic WBC 13 H 0-5 /HPF Urine Squamous Epithelial Cells Mod <5 /hpf Urine Bacteria Few H None Seen /hpf Urine Mucus Few None Seen Urine Glucose Normal Normal mg/dL SEPSIS Sepsis Screen Date sepsis recognized/suspect: Sep 16, 2025 Time Sepsis recognized/suspect: 612 Recent Procedure: No On Antibiotic Therapy: No Respiratory Rate >20: No Heart Rate >90: Yes Temp<36 C (96.8 F) or >38.3 C: No SBP <90 or MAP <65 mmHG: No New Acute Mental Status Change: No Is the patient on CPAP, BIPAP,: No Physician Orders Wound Culture W/ Gs (09/16/25 06:49) Blood Culture (09/16/25 06:49) Heplock Iv (09/16/25 ) NS (09/16/25 09:15) Ceftriaxone 1gm/50ml (Rocephin) (09/16/25 09:30) Clindamycin 900mg Iv (Cleocin Iv) (09/16/25 09:30) Admit (09/16/25 09:44) Code Status (09/16/25 09:44) Vital Signs .PER UNIT PROTOCOL (09/16/25 09:44) Review Orders With Adm. (09/16/25 09:44) Npo (Nothing By Mouth) Diet (09/16/25 Lunch) Sodium Chloride 0.9% (09/16/25 09:45) Acetaminophen Tablet (Tylenol Tablet) (09/16/25 09:45) Notify Md Of Changes From Base (09/16/25 09:44) Advance Directive (09/16/25 09:44) Patient Condition (09/16/25 09:44) Allergies (09/16/25 09:44) Hydrocodone-Acet 5/325mg Tab ([place] (09/16/25 09:45) Pelvis With Contrast Mri (09/16/25 09:44) Ceftriaxone 1gm/50ml (Rocephin) (09/17/25 09:00) Metronidazole 500mg/100ml (Flagyl 500mg/ (09/16/25 14:00) Free T4 (Free Thyroxine) (09/16/25 09:44) Free T3 (09/16/25 09:44) * Surgical Consult (09/16/25 ) Stool Occult Blood (09/16/25 09:44) Vital Signs Date Time Temp Pulse Resp B/P (MAP) Pulse Ox O2 Delivery O2 Flow Rate FiO2 09/16/25 08:06 98.8 105 18 121/60 (80) 98 98.8 09/16/25 08:06 105 18 98 Room Air 09/16/25 06:08 98.8 105 18 121/60 98 98.8 Laboratory Tests Test 09/16/25 07:30 Lactic Acid Level 1.3 mmol/L (0.4-2.0) White Blood Count 8.0 10^3/uL (4.4-10.8) Medications Medications Dose Ordered Sig/Marybeth Route Start Time Stop Time Status Last Admin Dose Admin Sodium Chloride 1,000 ml @ 1,000 mls/hr Q1H ONCE IV 09/16/25 09:15 09/16/25 10:14 09/16/25 09:18 1,000 MLS/HR Assessment/Plan Assessment/Plan #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 Imaging will clarify extent, and surgery may consider drainage or seton placement. #Crohns disease Chronic inflammatory bowel disease with current concern for active perianal involvement. MRI pelvis with contrast and GI/surgery consultation will help direct management alongside antibiotics: metronidazole and ceftraixone #Iron deficiency anemia Microcytic, hypochromic anemia (Hgb 8.8, MCV 76) is likely from chronic blood loss and nutritional compromise from IBD. Obtain full iron panel and start IV iron if indicated, monitor CBC. #Hyperthyroidism Low TSH raises concern for untreated hyperthyroid condition contributing to tachycardia and fatigue. Order T3/T4 levels, both came high, thyroid US came positive for enlarged thyroid, methimazole started TID as prescribed before #Urinary tract infection UA findings are consistent with infection. Continue ceftriaxone, follow urine culture Case discussed with Dr Aguila No DVT prophylaxis in the case of surgery Plan discussed with: Patient, Other (rn) My Orders Orders - ANGELIQUE ABREU RESIDENT Procedure Category Date Status Time Admit ADMIT 09/16/25 Transmitted 09:44 Code Status CODE 09/16/25 Transmitted 09:44 Vital Signs [facility] 09/16/25 In Process 09:44 Review Orders With [facility] 09/16/25 In Process Adm. 09:44 Npo (Nothing By DIET 09/16/25 Transmitted Mouth) Diet Lunch Sodium Chloride 0.9% [facility]A 09/16/25 Logged 09:45 Acetaminophen Tablet [facility] 09/16/25 Logged (Tylenol Tablet) 09:45 Notify Md Of Changes [facility] 09/16/25 In Process From Base 09:44 Advance Directive [facility] 09/16/25 In Process 09:44 Patient Condition ORDERS 09/16/25 Transmitted 09:44 Allergies [facility] 09/16/25 In Process 09:44 Hydrocodone-Acet PHA 09/16/25 Logged 5/325mg Tab ([place] 09:45 Pelvis With Contrast MRI 09/16/25 Logged MRI 09:44 Ceftriaxone 1gm/50ml PHA 09/17/25 Logged (Rocephin) 09:00 Metronidazole PHA 09/16/25 Logged 500mg/100ml (Flagyl 14:00 Free T4 (Free LAB 09/16/25 Logged Thyroxine) 09:44 Free T3 LAB 09/16/25 Logged 09:44 * Surgical Consult CONS 09/16/25 Transmitted Stool Occult Blood LAB 09/16/25 Logged 09:44 Date of Service: Sep 16, 2025 Billing Provider: TRACI AGUILA MD Common Visit Codes: [id number] INP/OBS CARE (HIGH) TRACI AGUILA MD 09/16/25 1505: Review of Systems Allergies: Coded Allergies: NO KNOWN ALLERGIES (Unverified , 05/04/15) Secondary Visit Codes: [id number] CARE PLAN 30 MINUTES ANGELIQUE ABREU Sep 16, 2025 10:14 TRACI AGUILA MD Sep 16, 2025 15:05
[2025-09-16 10:29] LABS: Free T3 15.81 pg/mL (2.3-4.2); Free T4 (Free Thyroxine) 5.29 ng/dL (0.89-1.76)
[2025-09-16 11:02] LABS: Total Iron Binding Capacity 289.0 ug/dL (250-425)
[2025-09-16 11:03] LABS: Iron 41.0 ug/dL (50-170)
--- NOTE | 2025-09-16 12:28 | DVH ---
ULTRASOUND SOFT TISSUE HEAD AND NECK CLINICAL INDICATION: hyperthyroidism TECHNIQUE: Multiple real time sonographic images of the thyroid were obtained. Comparison: None FINDINGS: The right lobe measures 6.0 x 2.5 x 3.1 cm The left lobe measures 5.8 x 2.5 x 3.1 cm The isthmus measures 1.6 cm NODULES: RIGHT LOBE NODULES: Nodule location: Right Mid Dimensions: - x 0.8 x 0.8 cm Composition: Solid or almost completely solid (2) Echogenicity: Hyperechoic or isoechoic (1) Shape: Wider than tall (0) Margin: Smooth (0) Echogenic foci: None or large comet tail artifacts (0) TI-RADS Category: TR3 Recommendation: No follow-up IMPRESSION: 1. No follow-up is recommended for the following, which do not have features requiring future action: - Right mid nodule measuring - x 0.8 x 0.8 cm. 2. Diffusely enlarged, heterogeneous and hypervascular thyroid gland. This may represent graves disease or thyroiditis. Clinical correlation advised.
[2025-09-16] MEDS ORDERED: methIMAzole 5 MG TAB PO SCH (13:00)
[2025-09-16] MEDS: CLINDAMYCIN 900MG IV 50 ML IV ONE (13:06)
[2025-09-16] MEDS: SODIUM CHLORIDE 0.9% 1,000 ML IV SCH (15:53)
[2025-09-16] MEDS: GADOTERATE MEG 10 MMOL/20ml INJ (0.5MMOL/ml) IV ONE (15:54)
[2025-09-16] MEDS: ONDANSETRON HCL 4 MG/2 ML VIAL IV ONE (16:04)
[2025-09-16] MEDS: MORPHINE SULFATE 4 MG/ML SYR/VIAL IV ONE (16:05)
[2025-09-16] MEDS: methIMAzole 5 MG TAB PO SCH (16:05)
--- NOTE | 2025-09-16 16:22 | DVH ---
CLINICAL HISTORY: Perianal fistula. TECHNIQUE: Multi sequence multi planar MRI images of the pelvis were obtained prior to and after the administration of 20 mL Clariscan contrast. COMPARISON: CT of the abdomen and pelvis dated 06/20/2023. FINDINGS: Limited examination due to motion artifact. There is a fistula visualized in the right gluteal cleft and coursing cephalad to the right ischioanal fossa and adjacent to the anus near the 8-9 o'clock position. Unable to assess the precise course of the fistula near the level of the internal and external sphincter, although appears to the transsphincteric based on its visualized course. Diffusely abnormal, lobulated appearance of the uterus and adnexal regions, with multiple masses demonstrated in the pelvis adjacent to or possibly partially within the uterus, including a predominantly cystic appearing mass near the expected location of the cervix demonstrating peripheral enhancement and measuring up to 8.3 x 7.9 x 9.2 cm. There is a partially cystic and solid mass seen along the anteriorly and centrally in the pelvis measuring up to 7.2 x 6.8 x 4.5 cm. In the right hemipelvis, there is a partially cystic and solid mass measuring up to 5.2 x 4.5 x 4.5 cm. There is a predominantly solid mass along the left anterior aspect of the uterus measuring up to 7.5 x 4.6 by 6.8 cm. There is a more cephalad positioned mass measuring up to 8.2 x 12.4 x 10.1 cm. There are multiple enlarged inguinal lymph nodes, with the largest measuring up to 3.6 by 1.7 cm on the left and 2.8 x 2.3 cm on the right. IMPRESSION: 1. Motion limited study. 2. Perianal fistula as described above. 3. Diffusely abnormal lobulated appearance of the uterus and adnexa, with multiple masses visualized as detailed above. Similar findings were seen on the prior CT from 2022, although the masses measure larger compared to the prior CT exam. Correlate with clinical findings clinical history.
[2025-09-16 20:11] LABS: Beta HCG, Quantitative 0.9 mIU/mL (1.5-4.2)
--- NOTE | 2025-09-16 20:14 | DVH ---
INDICATION: Pelvic mass uterine vs ovarian TECHNIQUE: Multiple real-time grayscale transabdominal sonographic images along with color and duplex Doppler of the uterus and ovaries were obtained. COMPARISON: MRI PELVIS WITH CONTRAST MRI on DOS: 09/16/25 FINDINGS: The uterus measures 18.1 x 6.8 x 8.7 cm. The endometrial stripe measures calcified mass in the cervix measures 7.4 x 7.9 x 7.1 cm. In the body of the uterus on the left is a 7.1 x 5.1 by 7.3 cm heterogeneous mass consistent with a fibroid. The right ovary measures 5 x 3.5 x 4.9 cm. Volume of the right ovary is 45.2 mL cm. The left ovary measures 6.1 x 4.5 x 5.7 cm. Volume of the left ovary is 81.93 mL. Subsequent color and duplex Doppler interrogation of the ovaries demonstrated symmetric vascular flow to both ovaries, though this does not exclude the possibility of torsion due to the dual blood supply. IMPRESSION: 1. Fibroid in the body of the uterus on the left measures 7.1 x 5.1 by 7.3 cm. 2. In the cervix is a calcified heterogeneous mass measuring 7.4 by 7.9 x 7.1 cm which may represent a fibroid.
[2025-09-16] MEDS: KETOROLAC TROMETH 30 MG/ML 1ML VIAL IV PRN (22:03)
[2025-09-16] MEDS: HYDROcodone-ACET 5/325MG TAB PO PRN (22:03)
[2025-09-16] MEDS: ACETAMINOPHEN 325 MG TAB PO PRN (22:04)
[2025-09-17] VITALS (7 sets, daily range): BP systolic 104–144; BP diastolic 51–75; PULSE 67–91; RESP 14–20; TEMP 97.9–98.6; O2SAT 96–99
[2025-09-17 03:06] LABS: Hemoglobin 8.0 g/dL (12.2-16.2); Nucleated Red Blood Cells % 0.1 %
[2025-09-17 03:08] LABS: Hematocrit 24.0 % (36.0-46.0); Mean Corpuscular Hemoglobin 26.4 pg (28.0-32.0); Mean Corpuscular Volume 79.3 fL (80.0-100.0)
[2025-09-17 03:28] LABS: Alanine Aminotransferase 36 U/L (7-40); Anion Gap 11 (5-15); BUN/Creatinine Ratio 18.4 (10.0-20.0); Blood Urea Nitrogen 14 mg/dL (9-23); Calcium 8.8 mg/dL (8.7-10.4); Glucose 89 mg/dL (74-106); Sodium 141 mmol/L (136-145); Total Protein 7.0 g/dL (5.7-8.2)
[2025-09-17 03:29] LABS: Albumin 3.5 g/dL (3.2-4.8); Bilirubin, Total 0.6 mg/dL (0.2-1.0)
[2025-09-17 03:30] LABS: Alkaline Phosphatase 179 U/L (46-116); Carbon Dioxide 20 mmol/L (20-31); Chloride 110 mmol/L (98-107); Potassium 3.4 mmol/L (3.5-5.1)
--- NOTE | 2025-09-17 11:02 | DVHINCON2 ---
Date of service: Sep 17, 2025 Referring Physician Azael Reason for Consultation Pelvic mass History of Present Illness HPI 40y Go LMP 08/31/2025 Admitted w/ Crohn disease and perianal fistula/abscess Imaging concerning for "pelvic mass" Compared to CT scan 2022, masses in pelvis have grown I ordered pelvic US that shows patient has large fibroid uterus and possibly cervical fibroid x 7cm Patient admits to having knowledge of uterine fibroids x 2 years. She denies any symptoms Her menstrual cycles are regular, denies pelvic pain or mass effect/bloating. She is has not been sexually active, ever. She has NEVER had a pelvic exam or pap test. Endorse hx of anemia s/p blood transfusions x 2 in the past, relates it was related to Crohns disease. Home Meds Active Scripts Prednisone (Prednisone) 20 Mg Tab, 60 MG PO DAILY for 5 Days, #15 MG Prov:YUMIKO YOU DO 01/09/24 Metronidazole (Flagyl) 500 Mg Tab, 1 TAB PO TID, #21 TAB Prov:TRACI BENDER MD 06/24/23 Ciprofloxacin Hcl (Cipro) 250 Mg Tab, 250 MG PO BID for 7 Days, #14 TAB Prov:TRACI BENDER MD 06/24/23 Methylprednisolone (Medrol Dosepak) 4 Mg Kostas, 4 MG PO UD, #21 TAB UAD Prov:TRACI BENDER MD 06/24/23 Ondansetron Odt 4MG Tab (ZOFRAN PO) 4 Mg Tb, 4 MG PO Q6HP PRN, #30 TAB ODT TAB-DISSOLVE IN MOUTH, THEN SWALLOW Prov:TRACI BENDER MD 06/24/23 Methimazole (Methimazole) 10 Mg Tab, 10 MG PO TID for 30 Days, #90 TAB 5 Refills Prov:TRACI BENDER MD 06/24/23 Loperamide Hcl (Imodium) 2 Mg Cp, 2 MG PO Q6HP PRN, #30 CAP Prov:TRACI BENDER MD 06/24/23 Reported Medications Morphine Sulfate (Morphine Sulfate Cr) 15 Mg Tab, 1 TAB PO DAILY 06/20/23 Multiple Vitamin (Multi-Day Vitamins) Vitamins Tab, 1 TAB PO DAILY, #30 TAB 05/05/15 Past Medical History Cardiac: No pertinent Hx Pulmonary: No pertinent Hx Central Nervous System: No pertinent Hx GI: Inflam bowel disease (Crohn) Hemotology/Oncology: Anemia NOS Hepatobiliary: No pertinent Hx Psychiatric: No pertinent Hx Musculoskeletal: No pertinent Hx Rheumotologic: No pertinent Hx Infectious Disease: No peritnent Hx ENT: No pertinent Hx Renal/: No pertinent Hx Endocrine: Hyperthyroidism Dermatology: No pertinent Hx Past Surgical History: Other (Spine surgery, Rectal fistula) Family History: No pertinent Hx Patient Family History: Diabetes mellitus G8 MOTHER FH: dementia G8 FATHER FH: stomach cancer G8 MOTHER No Family History of: Alcoholism Family history: Autoimmune disease (situation) Smoker: No Hx (Negative) Alocohol: None Drugs: None Lives with: With family Domestic Violence: Neg Review of Systems Constitutional: No symptom reported Ears, Nose, & Throat: No symptom reported Eyes: No symptom reported Pulmonary/Respiratory: No symptom reported Cardiovascular: No symptom reported Gastrointestinal: Abdominal Pain, Abnormal Stool Genitourinary: No symptom reported Musculoskeletal: No symptom reported Skin: No symptom reported Psychiatric: No symptom reported Endocrine: No symptom reported Hemotologic/Lymphatic: No symptom reported H&P Exam Vital Signs Vital Signs Date Time Temp Pulse Resp B/P (MAP) Pulse Ox O2 Delivery O2 Flow Rate FiO2 09/17/25 07:57 98.2 82 20 114/59 (77) 97 98.2 09/17/25 07:22 Room Air* 0 21 General Appeara: Well developed, Well nourished, Normal Appearance, Mild distress, Other (Covering face, avoidant) Comments Declined Physical Exam Labs/Xrays PATIENT: KAYLEY COSTELLOT: [id number] UNIT: [id number] : 1985 LOC: OVERFLOW ROOM / BED: [address] [place] [address] AGE / SEX: 40 / F ADM STATUS: ADM IN SERVICE 182 ORDERING PHYSICIAN: KAROL LEES DO PROCEDURE(s): PELUS - PELVIC REASON: Pelvic mass uterine vs ovarian? ORDER NUMBER(s): [id number], ACCESSION NUMBER(s): [id number] INDICATION: Pelvic mass uterine vs ovarian TECHNIQUE: Multiple real-time grayscale transabdominal sonographic images along with color and duplex Doppler of the uterus and ovaries were obtained. COMPARISON: MRI PELVIS WITH CONTRAST MRI on DOS: 09/16/25 FINDINGS: The uterus measures 18.1 x 6.8 x 8.7 cm. The endometrial stripe measures calcified mass in the cervix measures 7.4 x 7.9 x 7.1 cm. In the body of the uterus on the left is a 7.1 x 5.1 by 7.3 cm heterogeneous mass consistent with a fibroid. The right ovary measures 5 x 3.5 x 4.9 cm. Volume of the right ovary is 45.2 mL cm. The left ovary measures 6.1 x 4.5 x 5.7 cm. Volume of the left ovary is 81.93 mL. Subsequent color and duplex Doppler interrogation of the ovaries demonstrated symmetric vascular flow to both ovaries, though this does not exclude the possibility of torsion due to the dual blood supply. IMPRESSION: 1. Fibroid in the body of the uterus on the left measures 7.1 x 5.1 by 7.3 cm. 2. In the cervix is a calcified heterogeneous mass measuring 7.4 by 7.9 x 7.1 cm which may represent a fibroid. ATED BY: FIORELLA HINOJOSA Jr. DO DICTATED DATE/TIME: 09/16/252010 Labs Test 09/17/25 02:28 09/16/25 19:01 09/16/25 10:55 09/16/25 07:30 Range/Units White Blood Count 8.3 4.4-10.8 10^3/uL Red Blood Count 3.02 L 4.0-5.20 10^6/uL Hemoglobin 8.0 L 12.2-16.2 g/dL Hematocrit 24.0 L 36.0-46.0 % Mean Corpuscular Volume 79.3 L 80.0-100.0 fL Mean Corpuscular Hemoglobin 26.4 L 28.0-32.0 pg Mean Corpuscular Hemoglobin Concent 33.3 32.0-36.0 g/dL Red Cell Distribution Width 15.2 H 11.8-14.3 % Platelet Count 249 140-450 10^3/uL Mean Platelet Volume 8.9 6.9-10.8 fL Neutrophils (%) (Auto) 56.4 37.0-80.0 % Lymphocytes (%) (Auto) 27.0 10.0-50.0 % Monocytes (%) (Auto) 14.9 H 0.0-12.0 % Eosinophils (%) (Auto) 1.6 0.0-7.0 % Basophils (%) (Auto) 0.1 0.0-2.0 % Neutrophils # (Auto) 4.7 1.6-8.6 10 ^3/uL Lymphocytes # (Auto) 2.2 0.4-5.4 10 ^3/uL Monocytes # (Auto) 1.2 0-1.3 10 ^3/uL Eosinophils # (Auto) 0.1 0-0.8 10 ^3/uL Basophils # (Auto) 0 0-0.2 10 ^3/uL Nucleated Red Blood Cells 0.1 % Sodium Level 141 136-145 mmol/L Potassium Level 3.4 L 3.5-5.1 mmol/L Chloride Level 110 H 98-107 mmol/L Carbon Dioxide Level 20 20-31 mmol/L Anion Gap 11 5-15 Blood Urea Nitrogen 14 9-23 mg/dL Creatinine 0.76 0.550-1.02 mg/dL Glomerular Filtration Rate Calc 103 >90 mL/min BUN/Creatinine Ratio 18.4 10.0-20.0 Serum Glucose 89 74-106 mg/dL Calcium Level 8.8 8.7-10.4 mg/dL Total Bilirubin 0.6 0.2-1.0 mg/dL Aspartate Amino Transferase (AST) 56 H 13-40 U/L Alanine Aminotransferase (ALT) 36 7-40 U/L Alkaline Phosphatase 179 H 46-116 U/L Total Protein 7.0 5.7-8.2 g/dL Albumin 3.5 3.2-4.8 g/dL Lactate Dehydrogenase 446 H 120-246 U/L Carcinoembryonic Antigen < 0.50 <=5.0 ng/mL Beta HCG, Quantitative 0.9 L 1.5-4.2 mIU/mL Lactic Acid Level 1.3 0.4-2.0 mmol/L Iron Level 41 L 50-170 ug/dL Total Iron Binding Capacity 289 250-425 ug/dL Percent Iron Saturation 14.2 L 15-50 % Ferritin 142.7 10-291 ng/mL Thyroid Stimulating Hormone (TSH) < 0.01 L 0.55-4.78 uIU/mL Free Thyroxine (T4) Calculated 5.29 H 0.89-1.76 ng/dL Free Triiodothyronine (T3) pg/mL 15.81 H 2.3-4.2 pg/mL Test 09/16/25 06:42 Range/Units Urine Color Yellow Yellow Urine Clarity Clear Clear Urine pH 6.0 5.0-9.0 Urine Specific [place] > 1.050 H 1.001-1.035 Urine Protein 1+ H Negative Urine Ketones 1+ H Negative Urine Blood 2+ H Negative /uL Urine Nitrite Negative Negative Urine Bilirubin Negative Negative Urine Urobilinogen Normal Negative mg/dL Urine Leukocyte Esterase 3+ Negative /uL Urine RBC 50 0 - 4 /hpf Urine Microscopic WBC 13 H 0-5 /HPF Urine Squamous Epithelial Cells Mod <5 /hpf Urine Bacteria Few H None Seen /hpf Urine Mucus Few None Seen Urine Glucose Normal Normal mg/dL Microbiology Date/Time Source Procedure Growth Status 09/16/25 07:41 Blood Blood Culture - Preliminary NO GROWTH AFTER 24 HOURS OF INCUBATION. Resulted Assessment/Plan Admitting Diagnosis: Pelvic mass, possible cervical mass (Fibroids likely)- Asymptomatic Plan Patient refused pelvic exam Recommend f/u outpatient in [facility] for complete pelvic exam, PAP smear, and biopsy of cervical mass Thank you for allowing me to participate in the care of this patient Plan discussed with: Patient Date of Service: Sep 17, 2025 Billing Provider: KAROL LEES DO Common Visit Codes: CONSULT ONLY Consultation Codes: [id number] CONSULT <60MIN KAROL LEES DO Sep 17, 2025 11:02
--- NOTE | 2025-09-17 11:53 | DVHINCON2 ---
Date of service: Sep 17, 2025 Family History: Diabetes mellitus G8 MOTHER FH: dementia G8 FATHER FH: stomach cancer G8 MOTHER No Family History of: Alcoholism Family history: Autoimmune disease (situation) Allergies: Coded Allergies: NO KNOWN ALLERGIES (Unverified , 05/04/15) Home Meds Active Scripts Prednisone (Prednisone) 20 Mg Tab, 60 MG PO DAILY for 5 Days, #15 MG Prov:YOUYUMIKO Lucia POTTS 01/09/24 Metronidazole (Flagyl) 500 Mg Tab, 1 TAB PO TID, #21 TAB Prov:TRACI BENDER MD 06/24/23 Ciprofloxacin Hcl (Cipro) 250 Mg Tab, 250 MG PO BID for 7 Days, #14 TAB Prov:TRACI BENDER MD 06/24/23 Methylprednisolone (Medrol Dosepak) 4 Mg Kostas, 4 MG PO UD, #21 TAB UAD Prov:TRACI BENDER MD 06/24/23 Ondansetron Odt 4MG Tab (ZOFRAN PO) 4 Mg Tb, 4 MG PO Q6HP PRN, #30 TAB ODT TAB-DISSOLVE IN MOUTH, THEN SWALLOW Prov:TRACI BENDER MD 06/24/23 Methimazole (Methimazole) 10 Mg Tab, 10 MG PO TID for 30 Days, #90 TAB 5 Refills Prov:TRACI BENDER MD 06/24/23 Loperamide Hcl (Imodium) 2 Mg Cp, 2 MG PO Q6HP PRN, #30 CAP Prov:TRACI BENDER MD 06/24/23 Reported Medications Morphine Sulfate (Morphine Sulfate Cr) 15 Mg Tab, 1 TAB PO DAILY 06/20/23 Multiple Vitamin (Multi-Day Vitamins) Vitamins Tab, 1 TAB PO DAILY, #30 TAB 05/05/15 Current Medications Current Medications Medications (Trade) Dose Ordered Sig/Marybeth Route PRN Reason Start Time Stop Time Status Last Admin Ceftriaxone Sodium 50 ml @ 100 mls/hr DAILY@09 IV 09/17/25 09:00 Metronidazole 100 ml @ 100 mls/hr Q8HR IV 09/16/25 16:00 09/16/25 22:02 Methimazole (Tapazole) 10 mg DAILY PO 09/16/25 13:00 09/16/25 13:35 DC Methimazole (Tapazole) 10 mg TID PO 09/16/25 14:00 09/17/25 07:10 Vital Signs Vital Signs Date Time Temp Pulse Resp B/P (MAP) Pulse Ox O2 Delivery O2 Flow Rate FiO2 09/17/25 08:00 98 Room Air* 0 21 09/17/25 07:57 98.2 82 20 114/59 (77) 98.2 Labs/Diagnostic Data Labs Test 09/17/25 02:28 09/16/25 19:01 09/16/25 10:55 09/16/25 07:30 Range/Units White Blood Count 8.3 4.4-10.8 10^3/uL Red Blood Count 3.02 L 4.0-5.20 10^6/uL Hemoglobin 8.0 L 12.2-16.2 g/dL Hematocrit 24.0 L 36.0-46.0 % Mean Corpuscular Volume 79.3 L 80.0-100.0 fL Mean Corpuscular Hemoglobin 26.4 L 28.0-32.0 pg Mean Corpuscular Hemoglobin Concent 33.3 32.0-36.0 g/dL Red Cell Distribution Width 15.2 H 11.8-14.3 % Platelet Count 249 140-450 10^3/uL Mean Platelet Volume 8.9 6.9-10.8 fL Neutrophils (%) (Auto) 56.4 37.0-80.0 % Lymphocytes (%) (Auto) 27.0 10.0-50.0 % Monocytes (%) (Auto) 14.9 H 0.0-12.0 % Eosinophils (%) (Auto) 1.6 0.0-7.0 % Basophils (%) (Auto) 0.1 0.0-2.0 % Neutrophils # (Auto) 4.7 1.6-8.6 10 ^3/uL Lymphocytes # (Auto) 2.2 0.4-5.4 10 ^3/uL Monocytes # (Auto) 1.2 0-1.3 10 ^3/uL Eosinophils # (Auto) 0.1 0-0.8 10 ^3/uL Basophils # (Auto) 0 0-0.2 10 ^3/uL Nucleated Red Blood Cells 0.1 % Sodium Level 141 136-145 mmol/L Potassium Level 3.4 L 3.5-5.1 mmol/L Chloride Level 110 H 98-107 mmol/L Carbon Dioxide Level 20 20-31 mmol/L Anion Gap 11 5-15 Blood Urea Nitrogen 14 9-23 mg/dL Creatinine 0.76 0.550-1.02 mg/dL Glomerular Filtration Rate Calc 103 >90 mL/min BUN/Creatinine Ratio 18.4 10.0-20.0 Serum Glucose 89 74-106 mg/dL Calcium Level 8.8 8.7-10.4 mg/dL Total Bilirubin 0.6 0.2-1.0 mg/dL Aspartate Amino Transferase (AST) 56 H 13-40 U/L Alanine Aminotransferase (ALT) 36 7-40 U/L Alkaline Phosphatase 179 H 46-116 U/L Total Protein 7.0 5.7-8.2 g/dL Albumin 3.5 3.2-4.8 g/dL Lactate Dehydrogenase 446 H 120-246 U/L Carcinoembryonic Antigen < 0.50 <=5.0 ng/mL Beta HCG, Quantitative 0.9 L 1.5-4.2 mIU/mL Lactic Acid Level 1.3 0.4-2.0 mmol/L Iron Level 41 L 50-170 ug/dL Total Iron Binding Capacity 289 250-425 ug/dL Percent Iron Saturation 14.2 L 15-50 % Ferritin 142.7 10-291 ng/mL Thyroid Stimulating Hormone (TSH) < 0.01 L 0.55-4.78 uIU/mL Free Thyroxine (T4) Calculated 5.29 H 0.89-1.76 ng/dL Free Triiodothyronine (T3) pg/mL 15.81 H 2.3-4.2 pg/mL Test 09/16/25 06:42 Range/Units Urine Color Yellow Yellow Urine Clarity Clear Clear Urine pH 6.0 5.0-9.0 Urine Specific [place] > 1.050 H 1.001-1.035 Urine Protein 1+ H Negative Urine Ketones 1+ H Negative Urine Blood 2+ H Negative /uL Urine Nitrite Negative Negative Urine Bilirubin Negative Negative Urine Urobilinogen Normal Negative mg/dL Urine Leukocyte Esterase 3+ Negative /uL Urine RBC 50 0 - 4 /hpf Urine Microscopic WBC 13 H 0-5 /HPF Urine Squamous Epithelial Cells Mod <5 /hpf Urine Bacteria Few H None Seen /hpf Urine Mucus Few None Seen Urine Glucose Normal Normal mg/dL Microbiology Date/Time Source Procedure Growth Status 09/16/25 07:41 Blood Blood Culture - Preliminary NO GROWTH AFTER 24 HOURS OF INCUBATION. Resulted Assessment was called from the emergency room yesterday and prior to patient's admission i explained too evaluating ER provider that this patient needs to be referred to a higher level of care due to Crohn's ds and the anal problems probably related to her diagnosis. 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 Patient needs the attention of a dedicated colorectal surgeon and [facility]'ns disease specialist I only reviewed chart, did not examine or interview the patient Plan discussed with: Other MARGAUX ZHANG MD Sep 17, 2025 11:53
--- NOTE | 2025-09-17 11:58 | DVHPN2 ---
Subjective denies any abd pain/has rectal pain and discharge/ Changes from previous H/P or p: No Changes Objective Vitals Vital Signs Date Time Temp Pulse Resp B/P (MAP) Pulse Ox O2 Delivery O2 Flow Rate FiO2 09/17/25 08:00 98 Room Air* 0 21 09/17/25 07:57 98.2 82 20 114/59 (77) 98.2 Intake/Output Intake and Output 09/17/25 07:00 Intake Total 100 ml Balance 100 ml Intake IV Total 100 ml General Appearance: Alert, Oriented X3, Cooperative, No acute distress Lungs: Clear to auscultation Cardiovascular: Regular rate, Normal S1, Normal S2 Abdomen: Normal bowel sounds, Soft, No tenderness, No hepatospenomegaly Musculoskeletal: Normal sensory function, Normal motor function Neuro: Normal gait, Normal speech, Strength at 5/5 X4 ext, Normal tone, S ensation intact Psych/Mental Status: Mental status NL, Mood NL Medications Current Medications Medications Dose Ordered Sig/Marybeth Route Start Time Stop Time Status Last Admin Dose Admin Sodium Chloride 1,000 ml @ 60 mls/hr [id number] IV 09/16/25 09:45 09/17/25 02:25 60 MLS/HR Acetaminophen 650 mg Q6HP PRN PO 09/16/25 09:45 09/16/25 22:04 650 MG Acetaminophen/ Hydrocodone Bitart 1 tab Q4HP PRN PO 09/16/25 09:45 09/16/25 22:03 1 TAB Ceftriaxone Sodium 50 ml @ 100 mls/hr DAILY@09 IV 09/17/25 09:00 Metronidazole 100 ml @ 100 mls/hr Q8HR IV 09/16/25 16:00 09/16/25 22:02 100 MLS/HR Ketorolac Tromethamine 30 mg Q6HPRN PRN IV 09/16/25 10:15 09/21/25 10:14 09/17/25 04:33 30 MG Methimazole 10 mg TID PO 09/16/25 14:00 09/17/25 07:10 10 MG Laboratory Results Laboratory Tests 09/17/25 02:28 Chemistry Test 09/17/25 02:28 Albumin 3.5 g/dL (3.2-4.8) Calcium Level 8.8 mg/dL (8.7-10.4) Total Protein 7.0 g/dL (5.7-8.2) LFT Test 09/17/25 02:28 Alanine Aminotransferase (ALT) 36 U/L (7-40) Alkaline Phosphatase 179 U/L (46-116) H Aspartate Amino Transferase (AST) 56 U/L (13-40) H Total Bilirubin 0.6 mg/dL (0.2-1.0) Urinalysis Test 09/16/25 06:42 Urine Color Yellow (Yellow) Urine Clarity Clear (Clear) Urine pH 6.0 (5.0-9.0) Urine Specific [place] > 1.050 (1.001-1.035) Urine Protein 1+ (Negative) H Urine Ketones 1+ (Negative) H Urine Blood 2+ /uL (Negative) H Urine Nitrite Negative (Negative) Urine Bilirubin Negative (Negative) Urine Urobilinogen Normal mg/dL (Negative) Urine Leukocyte Esterase 3+ /uL (Negative) Urine RBC 50 /hpf (0 - 4) Urine Microscopic WBC 13 /HPF (0-5) H Urine Squamous Epithelial Cells Mod /hpf (<5) Urine Bacteria Few /hpf (None Seen) H Urine Mucus Few (None Seen) Urine Glucose Normal mg/dL (Normal) Microbiology Microbiology Date/Time Source Procedure Growth Status 09/16/25 07:41 Blood Blood Culture - Preliminary NO GROWTH AFTER 24 HOURS OF INCUBATION. Resulted Assessment/Plan Assessment/Plan crohns exacerbation- acute on chronic anemia to above perianal fistula immunosupressed status from dmrd fibroids with menorragia hyperthyroidism ambulatory status gi prophylaxis Plan discussed with: Patient Date of Service: Sep 17, 2025 Billing Provider: ROBBIN WOOD MD Common Visit Codes: [id number] INP/OBS CARE(MOD) ROBBIN WOOD MD Sep 17, 2025 11:58
[2025-09-17] MEDS: PANTOPRAZOLE 40 MG TAB PO ONE (12:16)
[2025-09-17] MEDS: POTASSIUM CHL 20MEQ/100ML 100 ML IV ONE (12:17)
[2025-09-17] MEDS: methylPREDNISolone SOD SUCC 40 MG/ML VL IV SCH (13:40)
[2025-09-17 14:03] LABS: Mean Corpuscular Volume 76.6 fL (80.0-100.0)
[2025-09-17 14:04] LABS: Hematocrit 24.2 % (36.0-46.0); Hemoglobin 8.4 g/dL (12.2-16.2); Mean Corpuscular Hemoglobin 26.4 pg (28.0-32.0); Nucleated Red Blood Cells % 0.1 %
[2025-09-17 14:20] LABS: Albumin 3.6 g/dL (3.2-4.8); Anion Gap 11 (5-15); BUN/Creatinine Ratio 26.1 (10.0-20.0); Bilirubin, Total 0.7 mg/dL (0.2-1.0); Blood Urea Nitrogen 18 mg/dL (9-23); Calcium 9.4 mg/dL (8.7-10.4); Carbon Dioxide 21 mmol/L (20-31); Glucose 85 mg/dL (74-106); Potassium 4.0 mmol/L (3.5-5.1); Sodium 143 mmol/L (136-145); Total Protein 7.2 g/dL (5.7-8.2)
[2025-09-17 14:33] LABS: Alanine Aminotransferase 40 U/L (7-40); Alkaline Phosphatase 199 U/L (46-116); Chloride 111 mmol/L (98-107)
[2025-09-18] MEDS: MORPHINE SULFATE 4 MG/ML SYR/VIAL IV ONE (00:54)
[2025-09-18 01:00] VITALS: BP 154/90; PULSE 70; RESP 12; TEMP 97.3; O2SAT 97
[2025-09-18 05:00] VITALS: BP 151/86; PULSE 78; RESP 16; TEMP 97.8; O2SAT 97
[2025-09-18] MEDS: PANTOPRAZOLE 40 MG TAB PO SCH (06:00)
[2025-09-18 08:12] VITALS: BP 151/86; PULSE 87; RESP 20; TEMP 98.1; O2SAT 96
[2025-09-18] MEDS: HYDROmorphone HCL 2 MG/ML VL/or syr IV ONE (11:35)
[2025-09-18 12:48] VITALS: BP 152/92; PULSE 77; RESP 20; O2SAT 97
[2025-09-18 17:00] VITALS: BP 148/81; PULSE 86; RESP 20; TEMP 98.3; O2SAT 93
[2025-09-18 21:00] VITALS: BP 141/80; PULSE 83; RESP 19; TEMP 98.1; O2SAT 96
[2025-09-18] MEDS: MELATONIN 5 MG TAB PO PRN (23:11)
[2025-09-19 01:00] VITALS: BP 155/79; PULSE 92; RESP 20; TEMP 97.6; O2SAT 96
[2025-09-19 05:00] VITALS: BP 164/96; PULSE 70; RESP 20; TEMP 98.4; O2SAT 95
[2025-09-19 08:56] VITALS: BP 170/84; PULSE 90; RESP 14; TEMP 99; O2SAT 94
[2025-09-19] MEDS ORDERED: hydrALAZINE HCL 20 MG/ML VL IV PRN (12:00)
[2025-09-19 13:55] VITALS: BP 134/78; PULSE 89; RESP 16; TEMP 98.2; O2SAT 97
[2025-09-19 14:20] LABS: Amphetamine Screen, Urine Neg (NEGATIVE); Barbiturate Scree,Urine Neg (NEGATIVE); Benzodiazephine Screen, Urine Neg (NEGATIVE); Cannabinoid Screen, Urine Pos (NEGATIVE); Cocaine Screen, Urine Neg (NEGATIVE); Opiate Scree,Urine Neg (NEGATIVE); Phencyclidine Screen, Urine Neg (NEGATIVE)
--- NOTE | 2025-09-19 15:40 | DVHCONRES ---
Date Seen: Sep 19, 2025 Resident Creating Document: CLAYTON BATEMAN RESIDENT Referring Physician Dr. Jasso History of Present Illness 40-year-old presented to the ER with a chief complaint of purulent drainage from perianal fistula which worsened for the past week. Patient reports that she has had perianal fistula for the past 10 years for which she underwent surgery in some hospital in [place] 2 years back, and she started experiencing nausea, vomiting and diarrhea for the past month followed by purulent drainage, pain well defecation, pain on wiping for the past couple of weeks which worsened therefore she decided to come into the ER. She was diagnosed with ulcerative colitis 10 years back and and later Crohn's disease 5 years back, she has a colonoscopy 2 years back. [facility] Currently denies any active nausea vomiting or diarrhea. Past medical/surgical history history: Crohn's disease on Skyrizi every two months, hypothyroidism, chronic perianal fistulas Social history: Lives with mom, denies smoking/drinking/drug use Patient seen and examined. Abdomen normoactive. Soft, nondistended. Family History: Diabetes mellitus G8 MOTHER FH: dementia G8 FATHER FH: stomach cancer G8 MOTHER No Family History of: Alcoholism Family history: Autoimmune disease (situation) Allergies: Coded Allergies: NO KNOWN ALLERGIES (Unverified , 05/04/15) Home Meds Active Scripts Prednisone (Prednisone) 20 Mg Tab, 60 MG PO DAILY for 5 Days, #15 MG Prov:YUMIKO YOU DO 01/09/24 Metronidazole (Flagyl) 500 Mg Tab, 1 TAB PO TID, #21 TAB Prov:TRACI BENDER MD 06/24/23 Ciprofloxacin Hcl (Cipro) 250 Mg Tab, 250 MG PO BID for 7 Days, #14 TAB Prov:TRACI BENDER MD 06/24/23 Methylprednisolone (Medrol Dosepak) 4 Mg Kostas, 4 MG PO UD, #21 TAB UAD Prov:TRACI BENDER MD 06/24/23 Ondansetron Odt 4MG Tab (ZOFRAN PO) 4 Mg Tb, 4 MG PO Q6HP PRN, #30 TAB ODT TAB-DISSOLVE IN MOUTH, THEN SWALLOW Prov:TRACI BENDER MD 06/24/23 Methimazole (Methimazole) 10 Mg Tab, 10 MG PO TID for 30 Days, #90 TAB 5 Refills Prov:TRACI BENDER MD 06/24/23 Loperamide Hcl (Imodium) 2 Mg Cp, 2 MG PO Q6HP PRN, #30 CAP Prov:TRACI BENDER MD 06/24/23 Reported Medications Morphine Sulfate (Morphine Sulfate Cr) 15 Mg Tab, 1 TAB PO DAILY 06/20/23 Multiple Vitamin (Multi-Day Vitamins) Vitamins Tab, 1 TAB PO DAILY, #30 TAB 05/05/15 Current Medications Current Medications Medications (Trade) Dose Ordered Sig/Marybeth Route PRN Reason Start Time Stop Time Status Last Admin Hydralazine HCl (Apresoline Injection) 5 mg Q4HP PRN IV SBP>160 09/19/25 12:00 Review of Systems Eyes: No Pain, No Vision change, No Conjunctivae inflammation, No Eyelid inflammation, No Other, No Redness ENT: No Ear pain, No Ear discharge, No Nose pain, No Nose discharge, No Nose congestion, No Mouth pain, No Mouth swelling, No Throat pain, No Throat swelling, No Other Cardiovascular: No Chest Pain reports Palpitations, No Orthopnea, No PND, No Edema, No Lt Headedness, No Other Respiratory: No Cough, No Dry, No Shortness of breath, No SOB with exertion, No Wheezing, No Hemoptysis, No Pleuritic Pain, No Sputum, No Other Gastrointestinal: Reports nausea, vomiting, diarrhea, perianal purulent drainage No Hematochezia, No Other Genitourinary: No Dysuria, No Frequency, No Incontinence, No Hematuria, No Retention, No Other Musculoskeletal: No other, No neck pain, No shoulder pain, No arm pain, No back pain, No hand pain, No leg pain, No foot pain Skin: No Rash, No Lesions, No Jaundice, No Bruising, No Other Vital Signs Vital Signs Date Time Temp Pulse Resp B/P (MAP) Pulse Ox O2 Delivery O2 Flow Rate FiO2 09/19/25 13:55 98.2 89 16 134/78 (96) 97 98.2 09/19/25 08:00 Room Air* 0 21 Physical Exam Patient lying in bed, in no acute distress General: Well-built, afebrile, palor, mucosae are moist Cardiovascular: Regular S1 and S2. No murmurs, gallops or rubs. No JVD elevation. No pedal edema Respiratory: Normal B/L air entry on room air. Clear lung sounds on auscultation Abdomen: Soft, nontender, nondistended, normoactive bowel sounds, no rebound tenderness, no organomegaly Genitourinary: Deferred MSK/skin: Mobilizes 4 limbs. Skin is dry and warm Psych/Mental Status: A/Ox3 Labs/Diagnostic Data Labs Test 09/19/25 14:00 09/17/25 13:38 09/16/25 19:01 09/16/25 10:55 Range/Units Urine Opiates Screen Neg NEGATIVE Urine Fentanyl Screen Neg NEGATIVE Urine Barbiturates Screen Neg NEGATIVE Urine Phencyclidine Screen Neg NEGATIVE Urine Amphetamines Screen Neg NEGATIVE Urine Benzodiazepines Screen Neg NEGATIVE Urine Cocaine Screen Neg NEGATIVE Urine Cannabinoids Screen Pos NEGATIVE White Blood Count 6.2 # 4.4-10.8 10^3/uL Red Blood Count 3.17 L 4.0-5.20 10^6/uL Hemoglobin 8.4 L 12.2-16.2 g/dL Hematocrit 24.2 L 36.0-46.0 % Mean Corpuscular Volume 76.6 L 80.0-100.0 fL Mean Corpuscular Hemoglobin 26.4 L 28.0-32.0 pg Mean Corpuscular Hemoglobin Concent 34.5 32.0-36.0 g/dL Red Cell Distribution Width 15.3 H 11.8-14.3 % Platelet Count 243 140-450 10^3/uL Mean Platelet Volume 8.8 6.9-10.8 fL Neutrophils (%) (Auto) 76.6 37.0-80.0 % Lymphocytes (%) (Auto) 13.5 10.0-50.0 % Monocytes (%) (Auto) 8.7 0.0-12.0 % Eosinophils (%) (Auto) 1.1 0.0-7.0 % Basophils (%) (Auto) 0.1 0.0-2.0 % Neutrophils # (Auto) 4.7 1.6-8.6 10 ^3/uL Lymphocytes # (Auto) 0.8 0.4-5.4 10 ^3/uL Monocytes # (Auto) 0.5 0-1.3 10 ^3/uL Eosinophils # (Auto) 0.1 0-0.8 10 ^3/uL Basophils # (Auto) 0 0-0.2 10 ^3/uL Nucleated Red Blood Cells 0.1 % Sodium Level 143 136-145 mmol/L Potassium Level 4.0 3.5-5.1 mmol/L Chloride Level 111 H 98-107 mmol/L Carbon Dioxide Level 21 20-31 mmol/L Anion Gap 11 5-15 Blood Urea Nitrogen 18 9-23 mg/dL Creatinine 0.69 0.550-1.02 mg/dL Glomerular Filtration Rate Calc 114 >90 mL/min BUN/Creatinine Ratio 26.1 H 10.0-20.0 Serum Glucose 85 74-106 mg/dL Calcium Level 9.4 8.7-10.4 mg/dL Total Bilirubin 0.7 0.2-1.0 mg/dL Aspartate Amino Transferase (AST) 57 H 13-40 U/L Alanine Aminotransferase (ALT) 40 7-40 U/L Alkaline Phosphatase 199 H 46-116 U/L C-Reactive Protein High Sensitivity 1.41 H <1.0 mg/dL Total Protein 7.2 5.7-8.2 g/dL Albumin 3.6 3.2-4.8 g/dL Lactate Dehydrogenase 446 H 120-246 U/L Carcinoembryonic Antigen < 0.50 <=5.0 ng/mL Beta HCG, Quantitative 0.9 L 1.5-4.2 mIU/mL Thyroid Stimulating Immunoglobulin 4.07 H 0.00-0.55 IU/L Test 09/16/25 07:30 09/16/25 06:42 Range/Units Lactic Acid Level 1.3 0.4-2.0 mmol/L Iron Level 41 L 50-170 ug/dL Total Iron Binding Capacity 289 250-425 ug/dL Percent Iron Saturation 14.2 L 15-50 % Ferritin 142.7 10-291 ng/mL Thyroid Stimulating Hormone (TSH) < 0.01 L 0.55-4.78 uIU/mL Free Thyroxine (T4) Calculated 5.29 H 0.89-1.76 ng/dL Free Triiodothyronine (T3) pg/mL 15.81 H 2.3-4.2 pg/mL Urine Color Yellow Yellow Urine Clarity Clear Clear Urine pH 6.0 5.0-9.0 Urine Specific [place] > 1.050 H 1.001-1.035 Urine Protein 1+ H Negative Urine Ketones 1+ H Negative Urine Blood 2+ H Negative /uL Urine Nitrite Negative Negative Urine Bilirubin Negative Negative Urine Urobilinogen Normal Negative mg/dL Urine Leukocyte Esterase 3+ Negative /uL Urine RBC 50 0 - 4 /hpf Urine Microscopic WBC 13 H 0-5 /HPF Urine Squamous Epithelial Cells Mod <5 /hpf Urine Bacteria Few H None Seen /hpf Urine Mucus Few None Seen Urine Glucose Normal Normal mg/dL Microbiology Date/Time Source Procedure Growth Status 09/16/25 07:41 Blood Blood Culture - Preliminary NO GROWTH AFTER 72 HOURS OF INCUBATION. Resulted 09/16/25 07:00 Genital Gram Stain - Final Resulted 09/16/25 07:00 Genital Wound Culture - Preliminary Resulted 09/16/25 06:42 Voided Urine Urine Culture - Final Complete Assessment Perianal fistula Crohn's disease Acute bacterial cystitis Iron-deficiency anemia Multiple pelvic emesis ? Fibroids ? Cervical mass Questionable Graves disease Cannabis dependence Plan/Recommendation MRI pelvis shows There is a fistula visualized in the right gluteal cleft and coursing cephalad to the right ischioanal fossa and adjacent to the anus near the 8-9 o'clock position. Unable to assess the precise course of the fistula near the level of the internal and external sphincter, although appears to the transsphincteric based on its visualized course. Plan: Recommendation: Dr. Connell No GI intervention indicated at this time, follow up with surgery recommendations. Surgeon recommended higher level of care for colorectal surgery and Crohn's disease specialist OBGYN recommended outpatient follow up for complete pelvic exam, Pap smear, bio psy of cervical mass Currently on IV Solu-Medrol 40 mg Q 8 hours, IV ceftriaxone and metronidazole Continue Protonix 40 mg daily IV iron daily Plan discussed with patient in which all questions were answered Case discussed with Dr. Connell Plan discussed with: Patient CLAYTON BATEMAN RESIDENT Sep 19, 2025 15:40
--- NOTE | 2025-09-19 16:01 | DVHPN2 ---
Subjective still having perianal pain Reviewed: H&P Changes from previous H/P or p: No Changes Objective Vitals Vital Signs Date Time Temp Pulse Resp B/P (MAP) Pulse Ox O2 Delivery O2 Flow Rate FiO2 09/19/25 13:55 98.2 89 16 134/78 (96) 97 98.2 09/19/25 08:00 Room Air* 0 21 Intake/Output Intake and Output 09/19/25 05:00 Intake Total 1910 ml Output Total 700 ml Balance 1210 ml Intake Oral 1660 ml IV Total 250 ml Output Urine Total 700 ml # Voids 6 # Bowel Movements 7 General Appearance: Alert, Oriented X3, Cooperative, No acute distress Lungs: Clear to auscultation Cardiovascular: Regular rate, Normal S1, Normal S2 Abdomen: Normal bowel sounds, Soft, No tenderness, No hepatospenomegaly Musculoskeletal: Normal sensory function, Normal motor function Neuro: Normal gait, Normal speech, Strength at 5/5 X4 ext, Normal tone, S ensation intact Psych/Mental Status: Mental status NL, Mood NL Medications Current Medications Medications Dose Ordered Sig/Marybeth Route Start Time Stop Time Status Last Admin Dose Admin Sodium Chloride 1,000 ml @ 60 mls/hr [id number] IV 09/16/25 09:45 09/17/25 02:25 60 MLS/HR Acetaminophen 650 mg Q6HP PRN PO 09/16/25 09:45 09/16/25 22:04 650 MG Acetaminophen/ Hydrocodone Bitart 1 tab Q4HP PRN PO 09/16/25 09:45 09/19/25 14:05 1 TAB Ceftriaxone Sodium 50 ml @ 100 mls/hr DAILY@09 IV 09/17/25 09:00 09/19/25 08:43 100 MLS/HR Metronidazole 100 ml @ 100 mls/hr Q8HR IV 09/16/25 16:00 09/19/25 14:05 100 MLS/HR Methimazole 10 mg TID PO 09/16/25 14:00 09/19/25 14:05 10 MG Pantoprazole Sodium 40 mg DAILY@0600 PO 09/18/25 06:00 09/19/25 06:43 40 MG Methylprednisolone Sodium Succinate 40 mg Q8HR IV 09/17/25 14:00 09/19/25 14:05 40 MG Melatonin 5 mg HS PRN PO 09/18/25 11:30 09/18/25 23:11 5 MG Hydralazine HCl 5 mg Q4HP PRN IV 09/19/25 12:00 Iron Sucrose 110 ml @ 110 mls/hr DAILY@1200 IV 09/19/25 15:45 09/23/25 15:44 Laboratory Results Laboratory Tests 09/17/25 13:38 Urinalysis Test 09/16/25 06:42 Urine Color Yellow (Yellow) Urine Clarity Clear (Clear) Urine pH 6.0 (5.0-9.0) Urine Specific [place] > 1.050 (1.001-1.035) Urine Protein 1+ (Negative) H Urine Ketones 1+ (Negative) H Urine Blood 2+ /uL (Negative) H Urine Nitrite Negative (Negative) Urine Bilirubin Negative (Negative) Urine Urobilinogen Normal mg/dL (Negative) Urine Leukocyte Esterase 3+ /uL (Negative) Urine RBC 50 /hpf (0 - 4) Urine Microscopic WBC 13 /HPF (0-5) H Urine Squamous Epithelial Cells Mod /hpf (<5) Urine Bacteria Few /hpf (None Seen) H Urine Mucus Few (None Seen) Urine Glucose Normal mg/dL (Normal) Microbiology Microbiology Date/Time Source Procedure Growth Status 09/16/25 07:41 Blood Blood Culture - Preliminary NO GROWTH AFTER 72 HOURS OF INCUBATION. Resulted 09/16/25 07:00 Genital Gram Stain - Final Resulted 09/16/25 07:00 Genital Wound Culture - Preliminary Resulted 09/16/25 06:42 Voided Urine Urine Culture - Final Complete Assessment/Plan Assessment/Plan crohns exacerbation- acute on chronic IV steroid, IV abx Possible need to transfer to higher level anemia to above perianal fistula immunosupressed status from dmrd fibroids with menorragia hyperthyroidism ambulatory status gi prophylaxis Plan discussed with: Patient My Orders Orders - AMAN SCHULZ MD Procedure Category Date Status Time Hydralazine Injection PHA 09/19/25 In Process (Apresoline Inject 12:00 Date of Service: Sep 19, 2025 Billing Provider: AMAN SCHULZ MD Common Visit Codes: [id number] INP/OBS CARE(HIGH) AMAN SCHULZ MD Sep 19, 2025 16:01
[2025-09-19] MEDS: IRON SUCROSE COMPLEX 110 ML IV SCH (16:08)
[2025-09-19] MEDS ORDERED: MORPHINE SULFATE INJ 2 MG/ml SYRG IV ONE (21:30)
[2025-09-19 21:40] VITALS: BP 150/93; PULSE 89; RESP 17; TEMP 97.8; O2SAT 97
[2025-09-19] MEDS: MORPHINE SULFATE 4 MG/ML SYR/VIAL IV ONE (22:03)
[2025-09-20] VITALS (8 sets, daily range): BP systolic 137–167; BP diastolic 67–101; PULSE 65–84; RESP 16–20; TEMP 97.3–99.1; O2SAT 96–99
[2025-09-20 06:20] LABS: Nucleated Red Blood Cells % 0.1 %
[2025-09-20 06:22] LABS: Hematocrit 29.8 % (36.0-46.0); Hemoglobin 9.7 g/dL (12.2-16.2); Mean Corpuscular Hemoglobin 26.1 pg (28.0-32.0); Mean Corpuscular Volume 80.3 fL (80.0-100.0)
[2025-09-20 06:31] LABS: INR 1.25 (0.9-1.15); Partial Thromboplastin Time 26.2 SEC (24.5-34.5); Prothrombin Time 13.0 sec (9.3-11.8)
[2025-09-20 06:38] LABS: Albumin 3.7 g/dL (3.2-4.8); Anion Gap 12 (5-15); BUN/Creatinine Ratio 31.4 (10.0-20.0); Bilirubin, Total 0.5 mg/dL (0.2-1.0); Blood Urea Nitrogen 16 mg/dL (9-23); Calcium 8.8 mg/dL (8.7-10.4); Carbon Dioxide 21 mmol/L (20-31); Chloride 106 mmol/L (98-107); Magnesium 1.8 mg/dL (1.6-2.6); Potassium 4.1 mmol/L (3.5-5.1); Sodium 139 mmol/L (136-145); Total Protein 7.5 g/dL (5.7-8.2)
[2025-09-20 06:39] LABS: Alanine Aminotransferase 56 U/L (7-40); Alkaline Phosphatase 224 U/L (46-116); Glucose 131 mg/dL (74-106)
[2025-09-20] MEDS: HYDROmorphone HCL 2 MG/ML VL/or syr IV PRN (09:23)
--- NOTE | 2025-09-20 11:47 | DVHPN2 ---
Subjective still having perianal pain Reviewed: H&P Changes from previous H/P or p: No Changes Objective Vitals Vital Signs Date Time Temp Pulse Resp B/P (MAP) Pulse Ox O2 Delivery O2 Flow Rate FiO2 09/20/25 09:30 98.9 71 20 155/70 (98) 99 98.9 09/20/25 08:00 Room Air* 0 21 Intake/Output Intake and Output 09/20/25 07:00 Intake Total 1160 ml Balance 1160 ml Intake Oral 800 ml IV Total 360 ml # Voids 9 # Bowel Movements 3 General Appearance: Alert, Oriented X3, Cooperative, No acute distress Lungs: Clear to auscultation Cardiovascular: Regular rate, Normal S1, Normal S2 Abdomen: Normal bowel sounds, Soft, No tenderness, No hepatospenomegaly Musculoskeletal: Normal sensory function, Normal motor function Neuro: Normal gait, Normal speech, Strength at 5/5 X4 ext, Normal tone, S ensation intact Psych/Mental Status: Mental status NL, Mood NL Medications Current Medications Medications Dose Ordered Sig/Marybeth Route Start Time Stop Time Status Last Admin Dose Admin Sodium Chloride 1,000 ml @ 60 mls/hr [id number] IV 09/16/25 09:45 09/17/25 02:25 60 MLS/HR Acetaminophen 650 mg Q6HP PRN PO 09/16/25 09:45 09/16/25 22:04 650 MG Acetaminophen/ Hydrocodone Bitart 1 tab Q4HP PRN PO 09/16/25 09:45 09/20/25 05:39 1 TAB Ceftriaxone Sodium 50 ml @ 100 mls/hr DAILY@09 IV 09/17/25 09:00 09/20/25 09:02 100 MLS/HR Metronidazole 100 ml @ 100 mls/hr Q8HR IV 09/16/25 16:00 09/20/25 05:39 100 MLS/HR Methimazole 10 mg TID PO 09/16/25 14:00 09/20/25 05:39 10 MG Pantoprazole Sodium 40 mg DAILY@0600 PO 09/18/25 06:00 09/20/25 05:39 40 MG Methylprednisolone Sodium Succinate 40 mg Q8HR IV 09/17/25 14:00 09/20/25 05:39 40 MG Melatonin 5 mg HS PRN PO 09/18/25 11:30 09/19/25 22:03 5 MG Hydralazine HCl 5 mg Q4HP PRN IV 09/19/25 12:00 Iron Sucrose 110 ml @ 110 mls/hr DAILY@1200 IV 09/19/25 15:45 09/23/25 15:44 09/19/25 16:08 110 MLS/HR Hydromorphone HCl 0.5 mg Q2HPRN PRN IV 09/20/25 08:45 09/20/25 09:23 0.5 MG Laboratory Results Laboratory Tests 09/20/25 05:40 Chemistry Test 09/20/25 05:40 Albumin 3.7 g/dL (3.2-4.8) Calcium Level 8.8 mg/dL (8.7-10.4) Magnesium Level 1.8 mg/dL (1.6-2.6) Total Protein 7.5 g/dL (5.7-8.2) Coagulation Test 09/20/25 05:40 Prothrombin Time 13.0 sec (9.3-11.8) H Prothrombin Time INR 1.25 (0.9-1.15) H Activated Partial Thromboplast Time 26.2 SEC (24.5-34.5) LFT Test 09/20/25 05:40 Alanine Aminotransferase (ALT) 56 U/L (7-40) H Alkaline Phosphatase 224 U/L (46-116) H Aspartate Amino Transferase (AST) 25 U/L (13-40) Total Bilirubin 0.5 mg/dL (0.2-1.0) Urinalysis Test 09/16/25 06:42 Urine Color Yellow (Yellow) Urine Clarity Clear (Clear) Urine pH 6.0 (5.0-9.0) Urine Specific [place] > 1.050 (1.001-1.035) Urine Protein 1+ (Negative) H Urine Ketones 1+ (Negative) H Urine Blood 2+ /uL (Negative) H Urine Nitrite Negative (Negative) Urine Bilirubin Negative (Negative) Urine Urobilinogen Normal mg/dL (Negative) Urine Leukocyte Esterase 3+ /uL (Negative) Urine RBC 50 /hpf (0 - 4) Urine Microscopic WBC 13 /HPF (0-5) H Urine Squamous Epithelial Cells Mod /hpf (<5) Urine Bacteria Few /hpf (None Seen) H Urine Mucus Few (None Seen) Urine Glucose Normal mg/dL (Normal) Microbiology Microbiology Date/Time Source Procedure Growth Status 09/16/25 07:41 Blood Blood Culture - Preliminary NO GROWTH AFTER 72 HOURS OF INCUBATION. Resulted 09/16/25 07:00 Genital Gram Stain - Final Resulted 09/16/25 07:00 Genital Wound Culture - Preliminary Resulted 09/16/25 06:42 Voided Urine Urine Culture - Final Complete Assessment/Plan Assessment/Plan crohns exacerbation- acute on chronic IV steroid, IV abx Possible need to transfer to higher level anemia to above perianal fistula immunosupressed status from dmrd fibroids with menorragia hyperthyroidism ambulatory status gi prophylaxis Plan discussed with: Patient My Orders Orders - AMAN SCHULZ MD Procedure Category Date Status Time Hydralazine Injection PHA 09/19/25 In Process (Apresoline Inject 12:00 Hydromorphone PHA 09/20/25 In Process Injection (Dilaudid 08:45 Date of Service: Sep 20, 2025 Billing Provider: AMAN SCHULZ MD Common Visit Codes: [id number] INP/OBS CARE(HIGH) AMAN SCHULZ MD Sep 20, 2025 11:47
--- NOTE | 2025-09-20 12:26 | DVHPN2 ---
Progress Note Date Seen: Sep 20, 2025 Resident Creating Document: CLAYTON BATEMAN RESIDENT Medical Necessity Reason Pt with a Central, PICC or Fol: No Subjective Review of Systems 40-year-old presented to the ER with a chief complaint of purulent drainage from perianal fistula which worsened for the past week. Patient reports that she has had perianal fistula for the past 10 years for which she underwent surgery in some hospital in [place] 2 years back, and she started experiencing nausea, vomiting and diarrhea for the past month followed by purulent drainage, pain well defecation, pain on wiping for the past couple of weeks which worsened therefore she decided to come into the ER. She was diagnosed with ulcerative colitis 10 years back and and later Crohn's disease 5 years back, she has a colonoscopy 2 years back. [facility] follows [facility]. Currently denies any active nausea vomiting or diarrhea. Past medical/surgical history history: Crohn's disease on Skyrizi every two months, hypothyroidism, chronic perianal fistulas Social history: Lives with mom, denies smoking/drinking/drug use 09/19-Patient seen and examined. Abdomen normoactive. Soft, nondistended. 09/20 - reports feeling better in terms of pain, still having 10 small bowel movements. Objective vital signs Vital Sign Date Time Temp Pulse Resp B/P (MAP) Pulse Ox O2 Delivery O2 Flow Rate FiO2 09/20/25 11:41 72 18 150/91 09/20/25 09:30 98.9 99 98.9 09/20/25 08:00 Room Air* 0 21 Total Intake and Output 09/19/25 09/19/25 09/20/25 15:00 23:00 07:00 Intake Total 50 ml 210 ml 900 ml Balance 50 ml 210 ml 900 ml medications Current Medications Medications Dose Ordered Sig/Marybeth Route Start Time Stop Time Status Last Admin Dose Admin Sodium Chloride 1,000 ml @ 60 mls/hr [id number] IV 09/16/25 09:45 09/17/25 02:25 60 MLS/HR Acetaminophen 650 mg Q6HP PRN PO 09/16/25 09:45 09/16/25 22:04 650 MG Acetaminophen/ Hydrocodone Bitart 1 tab Q4HP PRN PO 09/16/25 09:45 09/20/25 05:39 1 TAB Ceftriaxone Sodium 50 ml @ 100 mls/hr DAILY@09 IV 09/17/25 09:00 09/20/25 09:02 100 MLS/HR Metronidazole 100 ml @ 100 mls/hr Q8HR IV 09/16/25 16:00 09/20/25 05:39 100 MLS/HR Methimazole 10 mg TID PO 09/16/25 14:00 09/20/25 05:39 10 MG Pantoprazole Sodium 40 mg DAILY@0600 PO 09/18/25 06:00 09/20/25 05:39 40 MG Methylprednisolone Sodium Succinate 40 mg Q8HR IV 09/17/25 14:00 09/20/25 05:39 40 MG Melatonin 5 mg HS PRN PO 09/18/25 11:30 09/19/25 22:03 5 MG Hydralazine HCl 5 mg Q4HP PRN IV 09/19/25 12:00 Iron Sucrose 110 ml @ 110 mls/hr DAILY@1200 IV 09/19/25 15:45 09/23/25 15:44 09/20/25 11:44 110 MLS/HR Hydromorphone HCl 0.5 mg Q2HPRN PRN IV 09/20/25 08:45 09/20/25 11:41 0.5 MG Examination Patient lying in bed, in no acute distress General: Well-built, afebrile, palor, mucosae are moist Cardiovascular: Regular S1 and S2. No murmurs, gallops or rubs. No JVD elevation. No pedal edema Respiratory: Normal B/L air entry on room air. Clear lung sounds on auscultation Abdomen: Soft, nontender, nondistended, normoactive bowel sounds, no rebound tenderness, no organomegaly Genitourinary: Deferred MSK/skin: Mobilizes 4 limbs. Skin is dry and warm Psych/Mental Status: A/Ox3 laboratory and microbiology Laboratory Tests 09/20/25 05:40 Test 09/20/25 05:40 Range/Units Serum Glucose 131 H 74-106 mg/dL Microbiology Date/Time Source Procedure Growth Status 09/16/25 07:41 Blood Blood Culture - Preliminary NO GROWTH AFTER 72 HOURS OF INCUBATION. Resulted 09/16/25 07:00 Genital Gram Stain - Final Resulted 09/16/25 07:00 Genital Wound Culture - Preliminary Resulted 09/16/25 06:42 Voided Urine Urine Culture - Final Complete Labs and/or images reviewed: Labs reviewed by me, Image(s) reviewed by me Problem List/Assessment/Plan Problem List/Assessment/Plan Perianal fistula Crohn's disease Acute bacterial cystitis Iron-deficiency anemia Multiple pelvic emesis ? Fibroids ? Cervical mass Questionable Graves disease Cannabis dependence Plan/Recommendation MRI pelvis shows There is a fistula visualized in the right gluteal cleft and coursing cephalad to the right ischioanal fossa and adjacent to the anus near the 8-9 o'clock position. Unable to assess the precise course of the fistula near the level of the internal and external sphincter, although appears to the transsphincteric based on its visualized course. Plan: Recommendation: Dr. Connell Patient would benefit from Ramicaid or Entuvia, we can arrange that as outpatient in GI clinic. Follow up with GI as outpatient. No GI intervention indicated at this time, follow up with surgery recommendations. Agree with higher level of care for further management. Continue mesalamine 800 mg p.o. b.i.d. Surgeon recommended higher level of care for colorectal surgery and Crohn's disease specialist OBGYN recommended outpatient follow up for complete pelvic exam, Pap smear, biopsy of cervical mass Currently on IV fluids, IV Solu-Medrol 40 mg Q 8 hours, IV ceftriaxone and metronidazole. Decrease Solu-Medrol to b.i.d. tomorrow. Continue Protonix 40 mg daily IV iron daily Plan discussed with patient in which all questions were answered Case discussed with Dr. Connell Plan discussed with: Patient My Orders My Orders Orders - CLAYTON BATEMAN Procedure Category Date Status Time Iron Sucrose Complex PHA 09/19/25 In Process (Venofer) 15:45 CLAYTON BATEMAN Sep 20, 2025 12:26
[2025-09-20] MEDS: MESALAMINE 400mg Delayed Release Cap PO ONE (17:36)
[2025-09-20] MEDS: MESALAMINE 400mg Delayed Release Cap PO SCH (23:17)
[2025-09-21] VITALS (8 sets, daily range): BP systolic 125–143; BP diastolic 73–97; PULSE 65–74; RESP 16–19; TEMP 97.3–98.6; O2SAT 94–99
--- NOTE | 2025-09-21 15:07 | DVHPN2 ---
Progress Note Date Seen: Sep 21, 2025 Resident Creating Document: CLAYTON BATEMAN RESIDENT Medical Necessity Reason Pt with a Central, PICC or Fol: No Subjective Review of Systems 40-year-old presented to the ER with a chief complaint of purulent drainage from perianal fistula which worsened for the past week. Patient reports that she has had perianal fistula for the past 10 years for which she underwent surgery in some hospital in [place] 2 years back, and she started experiencing nausea, vomiting and diarrhea for the past month followed by purulent drainage, pain well defecation, pain on wiping for the past couple of weeks which worsened therefore she decided to come into the ER. She was diagnosed with ulcerative colitis 10 years back and and later Crohn's disease 5 years back, she has a colonoscopy 2 years back. [facility] follows [facility] Currently denies any active nausea vomiting or diarrhea. Past medical/surgical history history: Crohn's disease on Skyrizi every two months, hypothyroidism, chronic perianal fistulas Social history: Lives with mom, denies smoking/drinking/drug use 09/19-Patient seen and examined. Abdomen normoactive. Soft, nondistended. 09/20 - reports feeling better in terms of pain, still having 10 small bowel movements. 09/21 - reports feeling better. Multiple bowel movements. Vitally stable. Objective vital signs Vital Sign Date Time Temp Pulse Resp B/P (MAP) Pulse Ox O2 Delivery O2 Flow Rate FiO2 09/21/25 13:00 97.8 70 19 125/97 (106) 99 97.8 09/21/25 08:00 Room Air* 0 21 Total Intake and Output 09/20/25 09/20/25 09/21/25 15:00 23:00 07:00 Intake Total 260 ml 640 ml Balance 260 ml 640 ml medications Current Medications Medications Dose Ordered Sig/Marybeth Route Start Time Stop Time Status Last Admin Dose Admin Sodium Chloride 1,000 ml @ 60 mls/hr [id number] IV 09/16/25 09:45 09/21/25 06:25 60 MLS/HR Acetaminophen 650 mg Q6HP PRN PO 09/16/25 09:45 09/16/25 22:04 650 MG Acetaminophen/ Hydrocodone Bitart 1 tab Q4HP PRN PO 09/16/25 09:45 09/20/25 05:39 1 TAB Ceftriaxone Sodium 50 ml @ 100 mls/hr DAILY@09 IV 09/17/25 09:00 09/21/25 09:35 100 MLS/HR Metronidazole 100 ml @ 100 mls/hr Q8HR IV 09/16/25 16:00 09/21/25 14:35 100 MLS/HR Methimazole 10 mg TID PO 09/16/25 14:00 09/21/25 15:00 10 MG Pantoprazole Sodium 40 mg DAILY@0600 PO 09/18/25 06:00 09/21/25 06:23 40 MG Methylprednisolone Sodium Succinate 40 mg Q8HR IV 09/17/25 14:00 09/21/25 14:59 40 MG Melatonin 5 mg HS PRN PO 09/18/25 11:30 09/19/25 22:03 5 MG Hydralazine HCl 5 mg Q4HP PRN IV 09/19/25 12:00 Iron Sucrose 110 ml @ 110 mls/hr DAILY@1200 IV 09/19/25 15:45 09/23/25 15:44 09/21/25 12:08 110 MLS/HR Hydromorphone HCl 0.5 mg Q2HPRN PRN IV 09/20/25 08:45 09/21/25 11:32 0.5 MG Mesalamine 800 mg TID PO 09/20/25 22:00 09/21/25 14:59 800 MG Examination Patient lying in bed, in no acute distress General: Well-built, afebrile, palor, mucosae are moist Cardiovascular: Regular S1 and S2. No murmurs, gallops or rubs. No JVD elevation. No pedal edema Respiratory: Normal B/L air entry on room air. Clear lung sounds on auscultation Abdomen: Soft, nontender, nondistended, normoactive bowel sounds, no rebound tenderness, no organomegaly Genitourinary: Deferred MSK/skin: Mobilizes 4 limbs. Skin is dry and warm Psych/Mental Status: A/Ox3 laboratory and microbiology Laboratory Tests 09/20/25 05:40 Test 09/20/25 05:40 Range/Units Serum Glucose 131 H 74-106 mg/dL Microbiology Date/Time Source Procedure Growth Status 09/16/25 07:41 Blood Blood Culture - Final NO GROWTH AFTER 5 DAYS OF INCUBATION. Complete 09/16/25 07:00 Genital Gram Stain - Final Complete 09/16/25 07:00 Wound Culture - Final Escherichia coli Complete 09/16/25 06:42 Voided Urine Urine Culture - Final Complete Labs and/or images reviewed: Labs reviewed by me, Image(s) reviewed by me Problem List/Assessment/Plan Problem List/Assessment/Plan Perianal fistula Crohn's disease Acute bacterial cystitis Iron-deficiency anemia Multiple pelvic emesis ? Fibroids ? Cervical mass Questionable Graves disease Cannabis dependence Plan/Recommendation MRI pelvis shows There is a fistula visualized in the right gluteal cleft and coursing cephalad to the right ischioanal fossa and adjacent to the anus near the 8-9 o'clock position. Unable to assess the precise course of the fistula near the level of the internal and external sphincter, although appears to the transsphincteric based on its visualized course. Plan: Recommendation: Dr. Connell Patient would benefit from Ramicaid or Entuvia, we can arrange that as outpatient in GI clinic. Follow up with GI as outpatient. No GI intervention indicated at this time, follow up with surgery recommendations. Agree with higher level of care for further management. Continue mesalamine 800 mg p.o. b.i.d., budesonide 03 mg p.o. b.i.d.. Patient will need mesalamine, budesonide, for long-term and Medrol Dosepak prescriptions on discharge Surgeon recommended higher level of care for colorectal surgery and Crohn's disease specialist OBGYN recommended outpatient follow up for complete pelvic exam, Pap smear, biopsy of cervical mass Currently on IV fluids, IV Solu-Medrol 40 mg Q 8 hours, IV ceftriaxone and metronidazole. Decrease Solu-Medrol to b.i.d. tomorrow. Continue Protonix 40 mg daily IV iron daily Plan discussed with patient in which all questions were answered Case discussed with Dr. Connell Plan discussed with: Patient My Orders My Orders Orders - CLAYTON BATEMAN Procedure Category Date Status Time Mesalamine Dr Donnie GAYLE 09/20/25 In Process (Delzicol Delayed 22:00 Dietary Evaluation Review Comments: Monitor PO intake, lab values, weight trend, and I/O Expected Outcomes/Goals: GI symptoms to improve FU 3-5 days CLAYTON BATEMAN Sep 21, 2025 15:07
[2025-09-21] MEDS ORDERED: MESA400C PO (15:10)
[2025-09-21] MEDS ORDERED: METH4PAK PO (15:10)
--- NOTE | 2025-09-21 17:38 | DVHPN2 ---
Subjective still having perianal pain Reviewed: H&P Changes from previous H/P or p: No Changes Objective Vitals Vital Signs Date Time Temp Pulse Resp B/P (MAP) Pulse Ox O2 Delivery O2 Flow Rate FiO2 09/21/25 17:07 98.1 73 16 134/73 (93) 98 98.1 09/21/25 08:00 Room Air* 0 21 Intake/Output Intake and Output 09/21/25 05:00 Intake Total 900 ml Balance 900 ml Intake Oral 540 ml IV Total 360 ml # Voids 19 # Bowel Movements 12 General Appearance: Alert, Oriented X3, Cooperative, No acute distress Lungs: Clear to auscultation Cardiovascular: Regular rate, Normal S1, Normal S2 Abdomen: Normal bowel sounds, Soft, No tenderness, No hepatospenomegaly Musculoskeletal: Normal sensory function, Normal motor function Neuro: Normal gait, Normal speech, Strength at 5/5 X4 ext, Normal tone, S ensation intact Psych/Mental Status: Mental status NL, Mood NL Medications Current Medications Medications Dose Ordered Sig/Marybeth Route Start Time Stop Time Status Last Admin Dose Admin Sodium Chloride 1,000 ml @ 60 mls/hr [id number] IV 09/16/25 09:45 09/21/25 06:25 60 MLS/HR Acetaminophen 650 mg Q6HP PRN PO 09/16/25 09:45 09/16/25 22:04 650 MG Acetaminophen/ Hydrocodone Bitart 1 tab Q4HP PRN PO 09/16/25 09:45 09/20/25 05:39 1 TAB Ceftriaxone Sodium 50 ml @ 100 mls/hr DAILY@09 IV 09/17/25 09:00 09/21/25 09:35 100 MLS/HR Metronidazole 100 ml @ 100 mls/hr Q8HR IV 09/16/25 16:00 09/21/25 14:35 100 MLS/HR Methimazole 10 mg TID PO 09/16/25 14:00 09/21/25 15:00 10 MG Pantoprazole Sodium 40 mg DAILY@0600 PO 09/18/25 06:00 09/21/25 06:23 40 MG Methylprednisolone Sodium Succinate 40 mg Q8HR IV 09/17/25 14:00 09/21/25 14:59 40 MG Melatonin 5 mg HS PRN PO 09/18/25 11:30 09/19/25 22:03 5 MG Hydralazine HCl 5 mg Q4HP PRN IV 09/19/25 12:00 Iron Sucrose 110 ml @ 110 mls/hr DAILY@1200 IV 09/19/25 15:45 09/23/25 15:44 09/21/25 12:08 110 MLS/HR Hydromorphone HCl 0.5 mg Q2HPRN PRN IV 09/20/25 08:45 09/21/25 11:32 0.5 MG Mesalamine 800 mg TID PO 09/20/25 22:00 09/21/25 14:59 800 MG Laboratory Results Laboratory Tests 09/20/25 05:40 Urinalysis Test 09/16/25 06:42 Urine Color Yellow (Yellow) Urine Clarity Clear (Clear) Urine pH 6.0 (5.0-9.0) Urine Specific [place] > 1.050 (1.001-1.035) Urine Protein 1+ (Negative) H Urine Ketones 1+ (Negative) H Urine Blood 2+ /uL (Negative) H Urine Nitrite Negative (Negative) Urine Bilirubin Negative (Negative) Urine Urobilinogen Normal mg/dL (Negative) Urine Leukocyte Esterase 3+ /uL (Negative) Urine RBC 50 /hpf (0 - 4) Urine Microscopic WBC 13 /HPF (0-5) H Urine Squamous Epithelial Cells Mod /hpf (<5) Urine Bacteria Few /hpf (None Seen) H Urine Mucus Few (None Seen) Urine Glucose Normal mg/dL (Normal) Microbiology Microbiology Date/Time Source Procedure Growth Status 09/16/25 07:41 Blood Blood Culture - Final NO GROWTH AFTER 5 DAYS OF INCUBATION. Complete 09/16/25 07:00 Genital Gram Stain - Final Complete 09/16/25 07:00 Wound Culture - Final Escherichia coli Complete 09/16/25 06:42 Voided Urine Urine Culture - Final Complete Assessment/Plan Assessment/Plan crohns exacerbation- acute on chronic IV steroid, IV abx Possible need to transfer to higher level anemia to above perianal fistula immunosupressed status from dmrd fibroids with menorragia hyperthyroidism ambulatory status gi prophylaxis Plan discussed with: Patient Date of Service: Sep 21, 2025 Billing Provider: AMAN SCHULZ MD Common Visit Codes: [id number] INP/OBS CARE(HIGH) AMAN SCHULZ MD Sep 21, 2025 17:38
[2025-09-22 05:00] VITALS: BP 146/94; PULSE 63; RESP 16; TEMP 98.3; O2SAT 98
[2025-09-22 07:50] VITALS: RESP 17
[2025-09-22 09:00] VITALS: BP 141/75; PULSE 61; RESP 16; TEMP 97.4; O2SAT 96
--- NOTE | 2025-09-22 11:33 | DVHPN2 ---
Progress Note Date Seen: Sep 22, 2025 Resident Creating Document: CLAYTON BATEMAN RESIDENT Medical Necessity Reason Pt with a Central, PICC or Fol: No Subjective Review of Systems 40-year-old presented to the ER with a chief complaint of purulent drainage from perianal fistula which worsened for the past week. Patient reports that she has had perianal fistula for the past 10 years for which she underwent surgery in some hospital in [place] 2 years back, and she started experiencing nausea, vomiting and diarrhea for the past month followed by purulent drainage, pain well defecation, pain on wiping for the past couple of weeks which worsened therefore she decided to come into the ER. She was diagnosed with ulcerative colitis 10 years back and and later Crohn's disease 5 years back, she has a colonoscopy 2 years back. [facility] follows [facility]. Currently denies any active nausea vomiting or diarrhea. Past medical/surgical history history: Crohn's disease on Skyrizi every two months, hypothyroidism, chronic perianal fistulas Social history: Lives with mom, denies smoking/drinking/drug use 09/19-Patient seen and examined. Abdomen normoactive. Soft, nondistended. 09/20 - reports feeling better in terms of pain, still having 10 small bowel movements. 09/21 - reports feeling better. Multiple bowel movements. Vitally stable. 09/22-no active complaint. Objective vital signs Vital Sign Date Time Temp Pulse Resp B/P (MAP) Pulse Ox O2 Delivery O2 Flow Rate FiO2 09/22/25 11:24 80 19 128/74 09/22/25 09:00 97.4 96 97.4 09/22/25 07:50 Room Air* 0 21 Total Intake and Output 09/21/25 09/21/25 09/22/25 14:59 22:59 06:59 Intake Total 50 ml 560 ml 1160 ml Balance 50 ml 560 ml 1160 ml medications Current Medications Medications Dose Ordered Sig/Marybeth Route Start Time Stop Time Status Last Admin Dose Admin Sodium Chloride 1,000 ml @ 60 mls/hr [id number] IV 09/16/25 09:45 09/21/25 06:25 60 MLS/HR Acetaminophen 650 mg Q6HP PRN PO 09/16/25 09:45 09/16/25 22:04 650 MG Acetaminophen/ Hydrocodone Bitart 1 tab Q4HP PRN PO 09/16/25 09:45 09/20/25 05:39 1 TAB Ceftriaxone Sodium 50 ml @ 100 mls/hr DAILY@09 IV 09/17/25 09:00 09/22/25 09:53 100 MLS/HR Metronidazole 100 ml @ 100 mls/hr Q8HR IV 09/16/25 16:00 09/22/25 06:04 100 MLS/HR Methimazole 10 mg TID PO 09/16/25 14:00 09/22/25 06:05 10 MG Pantoprazole Sodium 40 mg DAILY@0600 PO 09/18/25 06:00 09/22/25 06:04 40 MG Methylprednisolone Sodium Succinate 40 mg Q8HR IV 09/17/25 14:00 09/22/25 06:04 40 MG Melatonin 5 mg HS PRN PO 09/18/25 11:30 09/19/25 22:03 5 MG Hydralazine HCl 5 mg Q4HP PRN IV 09/19/25 12:00 Iron Sucrose 110 ml @ 110 mls/hr DAILY@1200 IV 09/19/25 15:45 09/23/25 15:44 09/22/25 11:22 110 MLS/HR Hydromorphone HCl 0.5 mg Q2HPRN PRN IV 09/20/25 08:45 09/22/25 11:24 0.5 MG Mesalamine 800 mg TID PO 09/20/25 22:00 09/22/25 06:04 800 MG Examination Patient lying in bed, in no acute distress General: Well-built, afebrile, palor, mucosae are moist Cardiovascular: Regular S1 and S2. No murmurs, gallops or rubs. No JVD elevation. No pedal edema Respiratory: Normal B/L air entry on room air. Clear lung sounds on auscultation Abdomen: Soft, nontender, nondistended, normoactive bowel sounds, no rebound tenderness, no organomegaly Genitourinary: Deferred MSK/skin: Mobilizes 4 limbs. Skin is dry and warm Psych/Mental Status: A/Ox3 laboratory and microbiology Laboratory Tests 09/20/25 05:40 Test 09/20/25 05:40 Range/Units Serum Glucose 131 H 74-106 mg/dL Microbiology Date/Time Source Procedure Growth Status 09/16/25 07:41 Blood Blood Culture - Final NO GROWTH AFTER 5 DAYS OF INCUBATION. Complete 09/16/25 07:00 Genital Gram Stain - Final Complete 09/16/25 07:00 Wound Culture - Final Escherichia coli Complete 09/16/25 06:42 Voided Urine Urine Culture - Final Complete Labs and/or images reviewed: Labs reviewed by me, Image(s) reviewed by me Problem List/Assessment/Plan Problem List/Assessment/Plan Perianal fistula Crohn's disease Acute bacterial cystitis Iron-deficiency anemia Multiple pelvic emesis ? Fibroids ? Cervical mass Questionable Graves disease Cannabis dependence Plan/Recommendation MRI pelvis shows There is a fistula visualized in the right gluteal cleft and coursing cephalad to the right ischioanal fossa and adjacent to the anus near the 8-9 o'clock position. Unable to assess the precise course of the fistula near the level of the internal and external sphincter, although appears to the transsphincteric based on its visualized course. Plan: Recommendation: Dr. Connell Patient would benefit from Ramicaid or Entuvia, we can arrange that as outpatient in GI clinic. Follow up with GI as outpatient. No GI intervention indicated at this time, follow up with surgery recommendations. Agree with higher level of care for further management. Continue mesalamine 800 mg p.o. b.i.d., budesonide 03 mg p.o. b.i.d.. Patient will need mesalamine, budesonide, for long-term and Medrol Dosepak prescriptions on discharge Surgeon recommended higher level of care for colorectal surgery and Crohn's disease specialist OBGYN recommended outpatient follow up for complete pelvic exam, Pap smear, biopsy of cervical mass Currently on IV fluids, IV Solu-Medrol 40 mg Q 8 hours, IV ceftriaxone and metronidazole. Decrease Solu-Medrol to b.i.d. tomorrow. Continue Protonix 40 mg daily IV iron daily Plan discussed with patient in which all questions were answered Case discussed with Dr. Connell Plan discussed with: Patient Dietary Evaluation Review Comments: Monitor PO intake, lab values, weight trend, and I/O Expected Outcomes/Goals: GI symptoms to improve FU 3-5 days CLAYTON BATEMAN RESIDENT Sep 22, 2025 11:33
[2025-09-22] MEDS ORDERED: BUDE3CAP18 PO (11:34)
[2025-09-22] MEDS ORDERED: AUG875T PO (11:52)
[2025-09-22] MEDS ORDERED: PERCOT PO (11:52)
[2025-09-22 12:55] VITALS: BP 117/70; PULSE 69; RESP 16; TEMP 98.3; O2SAT 97
--- NOTE | 2025-09-22 13:08 | DVHDS2 ---
Discharge Summary Date of Admission Sep 16, 2025 at 09:44 Date of Discharge: Sep 22, 2025 Labs/Diagnostic Data: Laboratory Results Test 09/20/25 05:40 09/19/25 14:00 09/16/25 19:01 09/16/25 10:55 White Blood Count 12.9 10^3/uL (4.4-10.8) Red Blood Count 3.72 10^6/uL (4.0-5.20) Hemoglobin 9.7 g/dL (12.2-16.2) Hematocrit 29.8 % (36.0-46.0) Mean Corpuscular Volume 80.3 fL (80.0-100.0) Mean Corpuscular Hemoglobin 26.1 pg (28.0-32.0) Mean Corpuscular Hemoglobin Concent 32.4 g/dL (32.0-36.0) Red Cell Distribution Width 15.5 % (11.8-14.3) Platelet Count 293 10^3/uL (140-450) Mean Platelet Volume 9.3 fL (6.9-10.8) Neutrophils (%) (Auto) 82.0 % (37.0-80.0) Lymphocytes (%) (Auto) 10.3 % (10.0-50.0) Monocytes (%) (Auto) 7.7 % (0.0-12.0) Eosinophils (%) (Auto) 0.0 % (0.0-7.0) Basophils (%) (Auto) 0.0 % (0.0-2.0) Neutrophils # (Auto) 10.5 10 ^3/uL (1.6-8.6) Lymphocytes # (Auto) 1.3 10 ^3/uL (0.4-5.4) Monocytes # (Auto) 1.0 10 ^3/uL (0-1.3) Eosinophils # (Auto) 0 10 ^3/uL (0-0.8) Basophils # (Auto) 0 10 ^3/uL (0-0.2) Nucleated Red Blood Cells 0.1 % Erythrocyte Sedimentation Rate 11 mm/hr (0-20) Prothrombin Time 13.0 sec (9.3-11.8) Prothrombin Time INR 1.25 (0.9-1.15) Activated Partial Thromboplast Time 26.2 SEC (24.5-34.5) Sodium Level 139 mmol/L (136-145) Potassium Level 4.1 mmol/L (3.5-5.1) Chloride Level 106 mmol/L (98-107) Carbon Dioxide Level 21 mmol/L (20-31) Anion Gap 12 (5-15) Blood Urea Nitrogen 16 mg/dL (9-23) Creatinine 0.51 mg/dL (0.550-1.02) Glomerular Filtration Rate Calc 122 mL/min (>90) BUN/Creatinine Ratio 31.4 (10.0-20.0) Serum Glucose 131 mg/dL (74-106) Calcium Level 8.8 mg/dL (8.7-10.4) Magnesium Level 1.8 mg/dL (1.6-2.6) Total Bilirubin 0.5 mg/dL (0.2-1.0) Aspartate Amino Transferase (AST) 25 U/L (13-40) Alanine Aminotransferase (ALT) 56 U/L (7-40) Alkaline Phosphatase 224 U/L (46-116) C-Reactive Protein High Sensitivity 0.37 mg/dL (<1.0) Total Protein 7.5 g/dL (5.7-8.2) Albumin 3.7 g/dL (3.2-4.8) Urine Opiates Screen Neg (NEGATIVE) Urine Fentanyl Screen Neg (NEGATIVE) Urine Barbiturates Screen Neg (NEGATIVE) Urine Phencyclidine Screen Neg (NEGATIVE) Urine Amphetamines Screen Neg (NEGATIVE) Urine Benzodiazepines Screen Neg (NEGATIVE) Urine Cocaine Screen Neg (NEGATIVE) Urine Cannabinoids Screen Pos (NEGATIVE) Lactate Dehydrogenase 446 U/L (120-246) Tumor Marker Alpha Fetoprotein 6.7 ng/mL (0.0-6.4) Carcinoembryonic Antigen < 0.50 ng/mL (<=5.0) CA 125 Antigen 11.4 U/mL (0.0-38.1) Beta HCG, Quantitative 0.9 mIU/mL (1.5-4.2) Thyroid Stimulating Immunoglobulin 4.07 IU/L (0.00-0.55) Test 09/16/25 07:30 09/16/25 06:42 Lactic Acid Level 1.3 mmol/L (0.4-2.0) Iron Level 41 ug/dL (50-170) Total Iron Binding Capacity 289 ug/dL (250-425) Percent Iron Saturation 14.2 % (15-50) Ferritin 142.7 ng/mL (10-291) Thyroid Stimulating Hormone (TSH) < 0.01 uIU/mL (0.55-4.78) Free Thyroxine (T4) Calculated 5.29 ng/dL (0.89-1.76) Free Triiodothyronine (T3) pg/mL 15.81 pg/mL (2.3-4.2) Urine Color Yellow (Yellow) Urine Clarity Clear (Clear) Urine pH 6.0 (5.0-9.0) Urine Specific [place] > 1.050 (1.001-1.035) Urine Protein 1+ (Negative) Urine Ketones 1+ (Negative) Urine Blood 2+ /uL (Negative) Urine Nitrite Negative (Negative) Urine Bilirubin Negative (Negative) Urine Urobilinogen Normal mg/dL (Negative) Urine Leukocyte Esterase 3+ /uL (Negative) Urine RBC 50 /hpf (0 - 4) Urine Microscopic WBC 13 /HPF (0-5) Urine Squamous Epithelial Cells Mod /hpf (<5) Urine Bacteria Few /hpf (None Seen) Urine Mucus Few (None Seen) Urine Glucose Normal mg/dL (Normal) Other Laboratory Tests 09/20/25 05:40 Brief Hx & Hospital Course: 40-year-old female with a history of Crohns disease on Skyrizi every two months,prior perianal drainage procedures and hyperthyroidism who presents with worsening rectal pain, purulent discharge, generalized weakness, fatigue, nausea, and diarrhea. She reports a two-year history of recurrent perianal abscesses and possible fistulous disease but is unsure of prior imaging confirmation. She denies hematochezia or melena. She also reports an unspecified history of thyroid disease without active treatment. UA is positive for protein, ketones, blood, and leukocyte esterase. She is being admitted for further evaluation, MRI pelvis with contrast, and surgical consultation Had perianal fistula On IV abx, IV steroids Seen by GI, surgery>colorectal surgery consult as outpatient Condition at Discharge: Good Final Diagnosis/Problems List perianal fistula acute crohns disease flareup acute colitis Discharge Disposition: Home Discharge Instruct/Medications Diet: Regular Activity: No Restrictions, As Tolerated Follow Up/Referral: PCP and GI in 7 days Medications: mesalamine, prednisone, percocet Scheduled Amoxicillin & Pot Clavulanate (Augmentin Tablet), 875 MG PO BID Budesonide (Budesonide), 3 MG PO BID Ciprofloxacin Hcl (Cipro), 250 MG PO BID Mesalamine (Delzicol), 800 MG PO TID Methimazole (Methimazole), 10 MG PO TID Methylprednisolone (Medrol Dosepak), 4 MG PO UD Methylprednisolone (Medrol Dosepak), 4 MG PO UD Metronidazole (Flagyl), 1 TAB PO TID Morphine Sulfate (Morphine Sulfate Cr), 1 TAB PO DAILY, (Reported) Multiple Vitamin (Multi-Day Vitamins), 1 TAB PO DAILY, (Reported) Oxycodone W/ Acetaminophen (Percocet 5/325MG), 1 TAB PO QID Prednisone (Prednisone), 60 MG PO DAILY Scheduled PRN Loperamide Hcl (Imodium), 2 MG PO Q6HP PRN Ondansetron Odt 4MG Tab (Zofran Po), 4 MG PO Q6HP PRN Discharge Statement: "Patient was advised to return to the ER or call 911 if any headaches, dizziness, shortness of breath, chest pain, abdominal pain, bleeding, fevers, or worsening of medical condition. Patient was counseled about treatment plan, medications, possible side effects, patientverbalized understanding. All questions were answered to the best of my ability. This discharge took greater then 30 minutes in planning, reviewing documentation, counseling the patient, and discussing with other team members." ASSESSMENT ASSESSMENT Assessment perianal fistula acute crohns disease flareup acute colitis Date of Service: Sep 22, 2025 Billing Provider: AMAN SCHULZ MD Common Visit Codes: [id number] DISCH DAY >30min AMAN SCHULZ MD Sep 22, 2025 13:08
== END 2025-09-22 15:39 | disposition home or self-care (01) | DRG 245 ==
LOC: ER 06:06 → OVERFLOW 09:44 → EAST 09-17 03:25
PROVIDERS: ADMIT Hospitalist; ATTEND Hospitalist
DX: K50.913 Crohn's disease, unspecified, with fistula (principal); D25.9 Leiomyoma of uterus, unspecified; F12.20 Cannabis dependence, uncomplicated; D50.9 Iron deficiency anemia, unspecified; E05.90 Thyrotoxicosis, unspecified without thyrotoxic crisis or storm; N30.00 Acute cystitis without hematuria; K60.30 Anal fistula, unspecified; N88.9 Noninflammatory disorder of cervix uteri, unspecified; K52.9 Noninfective gastroenteritis and colitis, unspecified; Z83.3 Family history of diabetes mellitus; Z80.0 Family history of malignant neoplasm of digestive organs
CPT/HCPCS: 36415; 72195; 76536; 76856; 80053; 80307; 81001; 82105; 82378; 82728; 83540; 83550; 83605; 83615; 83735; 84439; 84443; 84445; 84481; 84702; 85025; 85610; 85652; 85730; 86141; 86304; 87040; 87077; 87081; 87086; 87186; 87205; 96360; G0378; J1756; J1885; J2405; J3480; J3490